=== PATIENT | male | born 1955 | race Caucasian/White ===

== ENCOUNTER 2017-08-04 10:34 | Inpatient (IN) | payer OTHER ==
[2017-08-04] MEDS ORDERED: ASPIRIN 81 MG PO STA (10:57)
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
[2017-08-04] MEDS ORDERED: LORazepam 2 MG/ML INJ IV STA (11:11)
[2017-08-04] MEDS ORDERED: NITROGLYCERIN OINT 1 INCH/GM PACKET TOPICAL STA (11:25)
[2017-08-04 11:28] LABS: Basophils # (A) 0.1 k/uL (0-0.2); Basophils % (A) 1 %; Eosinophils # (A) 0.2 k/uL (0-0.7); Eosinophils % (A) 4 %; HCT 40.7 % (39.0-53.0); HGB 12.9 gm/dL (13.0-17.5); Lymphocytes # (A) 1.9 k/uL (1.0-4.8); Lymphocytes % (A) 31 %; MCH 31.2 pg (25.0-35.0); MCHC 31.7 g/dL (31.0-37.0); MCV 98.2 fL (80.0-100.0); Mean Platelet Volume 8.2; Monocytes # (A) 0.6 k/uL (0-1.0); Monocytes % (A) 9 %; Neutrophils # (A) 3.4 k/uL (1.3-7.7); Neutrophils % (A) 54 %; Platelet Count 136 k/uL (150-450); RBC 4.14 m/uL (4.30-5.90); WBC 6.3 k/uL (3.8-10.6)
[2017-08-04 11:37] LABS: Partial Thromboplastin Time 27.4 sec (22.0-30.0); Prothrombin Time 10.1 sec (9.0-12.0)
[2017-08-04 11:41] LABS: ALT 18 U/L (21-72); AST 18 U/L (17-59); Albumin 3.8 g/dL (3.5-5.0); Alkaline Phosphatase 63 U/L (38-126); Anion Gap 14 mmol/L; Blood Urea Nitrogen 14 mg/dL (9-20); Calcium 9.3 mg/dL (8.4-10.2); Carbon Dioxide 19 mmol/L (22-30); Chloride 113 mmol/L (98-107); Glucose 82 mg/dL (74-99); Potassium 3.7 mmol/L (3.5-5.1); Sodium 146 mmol/L (137-145); Total Bilirubin 0.4 mg/dL (0.2-1.3); Total Protein 6.4 g/dL (6.3-8.2)
[2017-08-04 11:45] LABS: Creatine Kinase 136 U/L (55-170)
[2017-08-04 11:56] LABS: Creatine Kinase MB 2.2 ng/mL (0.0-2.4); Troponin I <0.012 ng/mL (0.000-0.034)
--- NOTE | 2017-08-04 12:01 | XR ---
EXAMINATION TYPE: XR shoulder complete RT DATE OF EXAM: 08/04/2017 CLINICAL HISTORY: Lifting injury with pain TECHNIQUE: Three views of the right shoulder are obtained. COMPARISON: None. FINDINGS: There is no acute fracture/dislocation evident in the right shoulder. The acromioclavicul ar and glenohumeral joint spaces appear within normal limits. The visualized ribs are intact and unr emarkable. IMPRESSION: There is no acute fracture or dislocation in the right shoulder.
--- NOTE | 2017-08-04 12:15 | XR ---
EXAMINATION TYPE: XR chest 2V DATE OF EXAM: 08/04/2017 COMPARISON: NONE HISTORY: Chest pain. TECHNIQUE: Frontal and lateral views of the chest are obtained. FINDINGS: There is chronic emphysematous change without suspicious air space opacity, pleural effusi on, or pneumothorax seen. The cardiac silhouette size is upper limits of normal. The osseous struc tures are demineralized. Underlying scoliotic curvature is present. IMPRESSION: Chronic changes without acute pulmonary process.
[2017-08-04] MEDS ORDERED: MAGNESIUM SULFATE-D5W PMX 1 GM in DEXTROSE/WATER 1 100ML.BAG IVPB ONE (12:19)
--- NOTE | 2017-08-04 13:11 | CT ---
EXAMINATION TYPE: CT brain wo con DATE OF EXAM: 08/04/2017 COMPARISON: NONE HISTORY: Seizure CT DLP: 1147 mGycm Automated exposure control for dose reduction was used. FINDINGS: Ventricular system is midline without evidence of displacement. There is no acute hemorrhage mass effect or midline shift. Ventricular system is compatible with the patient's age. IMPRESSION: NO ACUTE HEMORRHAGE OR MASS EFFECT. IF THERE IS CONCERN FOR ACUTE ISCHEMIA CORRELATE WITH MRI.
[2017-08-04] MEDS ORDERED: levETIRAcetam IV 1,000 MG in SALINE 1 100ML.BAG IVPB STA (13:41)
[2017-08-04] MEDS ORDERED: NITROGLYCERIN SL TABS 0.4 MG TAB SUBLINGUAL PRN (13:56)
[2017-08-04 15:42] VITALS: BMI 22.3
[2017-08-04] MEDS: BACLOFEN 10 MG TAB PO SCH ×2 (16:40→19:51)
[2017-08-04] MEDS: NITROGLYCERIN OINT 1 INCH/GM PACKET TOPICAL SCH ×2 (17:28→22:57)
[2017-08-04] MEDS: GABAPENTIN 300 MG CAP PO SCH ×3 (17:29→19:51)
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
[2017-08-04] MEDS ORDERED: LORazepam 2 MG/ML INJ IV PRN (18:32)
[2017-08-04 18:35] LABS: Creatine Kinase 120 U/L (55-170)
[2017-08-04 18:50] LABS: Creatine Kinase MB 1.7 ng/mL (0.0-2.4); Troponin I <0.012 ng/mL (0.000-0.034)
--- NOTE | 2017-08-04 19:11 | ECHOF ---
Referral Reason: MEASUREMENTS -------- HEIGHT: 180.3 cm WEIGHT: 72.6 kg BP: 149/84 RVIDd: 2.6 cm (< 3.3) IVSd: 1.2 cm (0.6 - 1.1) LVIDd: 5.0 cm (3.9 - 5.3) LVPWd: 1.2 cm (0.6 - 1.1) IVSs: 1.6 cm LVIDs: 3.1 cm LVPWs: 1.6 cm LA Diam: 3.6 cm (2.7 - 3.8) LAESV Index (A-L): 25.87 ml/m Ao Diam: 3.8 cm (2.0 - 3.7) AV Cusp: 2.3 cm (1.5 - 2.6) MV EXCURSION: 22.777 mm (> 18.000) MV EF SLOPE: 97 mm/s (70 - 150) EPSS: 0.2 cm MV E Noah: 0.60 m/s MV DecT: 311 ms MV A Noah: 0.88 m/s MV E/A Ratio: 0.68 RAP: 5.00 mmHg RVSP: 20.60 mmHg FINDINGS -------- Sinus rhythm. This was a technically adequate study. The left ventricular size is normal. There is borderline concentric left ventricular hypertrophy. Overall left ventricular systolic function is normal with, an EF between 55 - 60 %. The right ventricle is normal in size. Normal LA size by volume 22+/-6 ml/m2. The right atrium is normal in size. Aortic valve is trileaflet and is mildly thickened. The mitral valve leaflets are mildly thickened. Mild tricuspid regurgitation present. Right ventricular systolic pressure is normal at < 35 mmHg. The pulmonic valve was not well visualized. The aortic root is dilated measuring 3.8cm. IVC Not well visulized. There is no pericardial effusion. CONCLUSIONS -------- 1. Sinus rhythm. 2. This was a technically adequate study. 3. The left ventricular size is normal. 4. There is borderline concentric left ventricular hypertrophy. 5. Overall left ventricular systolic function is normal with, an EF between 55 - 60 %. 6. The right ventricle is normal in size. 7. Normal LA size by volume 22+/-6 ml/m2. 8. The right atrium is normal in size. 9. Aortic valve is trileaflet and is mildly thickened. 10. The mitral valve leaflets are mildly thickened. 11. Mild tricuspid regurgitation present. 12. Right ventricular systolic pressure is normal at < 35 mmHg. 13. The pulmonic valve was not well visualized. 14. The aortic root is dilated measuring 3.8cm. 15. IVC Not well visulized. 16. There is no pericardial effusion. PROVIDER RELATIONS REP: Meli Emanuel RDCS
[2017-08-04] MEDS: levETIRAcetam 500 MG TAB PO SCH (19:51)
[2017-08-04] MEDS: PRAVASTATIN SODIUM 20 MG TAB PO SCH (19:51)
[2017-08-04] MEDS: MONTELUKAST 10 MG TAB PO SCH (19:51)
[2017-08-04] MEDS: BRIVARACETAM 50 MG PO SCH (19:54)
[2017-08-04] MEDS: HYDROcodone/APAP 7.5-325MG 1 EACH TAB PO SCH (19:57)
[2017-08-04] MEDS ORDERED: ATENOLOL 25 MG TAB PO SCH (21:00)
[2017-08-05 01:18] LABS: Creatine Kinase 105 U/L (55-170)
[2017-08-05 01:33] LABS: Creatine Kinase MB 1.5 ng/mL (0.0-2.4); Troponin I <0.012 ng/mL (0.000-0.034)
[2017-08-05 06:10] LABS: Basophils # (A) 0.1 k/uL (0-0.2); Basophils % (A) 1 %; Eosinophils # (A) 0.2 k/uL (0-0.7); Eosinophils % (A) 3 %; HCT 41.7 % (39.0-53.0); HGB 13.7 gm/dL (13.0-17.5); Lymphocytes # (A) 1.3 k/uL (1.0-4.8); Lymphocytes % (A) 19 %; MCH 32.3 pg (25.0-35.0); MCHC 32.9 g/dL (31.0-37.0); MCV 98.2 fL (80.0-100.0); Mean Platelet Volume 8.4; Monocytes # (A) 0.6 k/uL (0-1.0); Monocytes % (A) 9 %; Neutrophils # (A) 4.6 k/uL (1.3-7.7); Neutrophils % (A) 67 %; Platelet Count 141 k/uL (150-450); RBC 4.25 m/uL (4.30-5.90); RDW 13.7 % (11.5-15.5); WBC 6.8 k/uL (3.8-10.6)
[2017-08-05] MEDS: LEVOTHYROXINE 75 MCG TAB PO SCH (06:26)
[2017-08-05] MEDS: NITROGLYCERIN OINT 1 INCH/GM PACKET TOPICAL SCH (06:26)
[2017-08-05] MEDS: PANTOPRAZOLE 40 MG TABLET PO SCH (06:26)
[2017-08-05 06:29] LABS: ALT 16 U/L (21-72); AST 15 U/L (17-59); Albumin 3.4 g/dL (3.5-5.0); Alkaline Phosphatase 55 U/L (38-126); Anion Gap 11 mmol/L; Blood Urea Nitrogen 13 mg/dL (9-20); Calcium 9.1 mg/dL (8.4-10.2); Carbon Dioxide 23 mmol/L (22-30); Chloride 111 mmol/L (98-107); Cholesterol 171 mg/dL (<200); Glucose 92 mg/dL (74-99); HDL Cholesterol 32 mg/dL (40-60); LDL Cholesterol,Calculated 124 mg/dL (0-99); Potassium 3.8 mmol/L (3.5-5.1); Sodium 145 mmol/L (137-145); Total Bilirubin 0.3 mg/dL (0.2-1.3); Total Protein 5.8 g/dL (6.3-8.2); Triglycerides 77 mg/dL (<150)
[2017-08-05] MEDS ORDERED: IPRATROPIUM 0.5 MG/2.5 ML NEBU INHALATION SCH (08:00)
[2017-08-05] MEDS: BRIVARACETAM 50 MG PO SCH ×2 (08:03→20:19)
[2017-08-05] MEDS: BACLOFEN 10 MG TAB PO SCH ×3 (08:04→20:24)
[2017-08-05] MEDS: FLUTICASONE 50MCG/SPRAY NASAL 16GM EA NOSTRIL SCH (08:04)
[2017-08-05] MEDS: ASPIRIN 325 MG TAB PO SCH (08:04)
[2017-08-05] MEDS: GABAPENTIN 300 MG CAP PO SCH ×4 (08:04→20:23)
[2017-08-05] MEDS: TOPIRAMATE 400 MG PO SCH (08:04)
[2017-08-05] MEDS: levETIRAcetam 500 MG TAB PO SCH ×2 (08:04→20:23)
[2017-08-05] MEDS: NICOTINE 21MG/24HR PATCH TRANSDERM SCH (08:05)
[2017-08-05] MEDS: LISINOPRIL 20 MG TAB PO SCH (08:05)
[2017-08-05] MEDS: HYDROcodone/APAP 7.5-325MG 1 EACH TAB PO SCH ×2 (08:11→20:23)
--- NOTE | 2017-08-05 09:48 | CONS ---
CONSULTATION CHIEF COMPLAINT: Cardiac arrhythmia. Adolfo is 61-year-old gentleman with history of seizure disorder for a long time, comes into hospital having had seizures and subsequently had seizure in the ER. These are generalized tonic-clonic seizures. During that time, his rhythm strip showed wide- complex tachycardia for which Cardiology has been consulted. It appears as if it is a polymorphic VT, but on close in meticulous evaluation, the patient has underlying sinus rhythm with sinus bradycardia and this seems to be an artifact. Patient had an echocardiogram that showed normal LV function. Since admission, patient did not have any further cardiac arrhythmia and the EKG does not reveal ischemic changes. He has had 3 sets of troponins that are all within normal limits. Potassium is normal at 3.8, creatinine is 0.9. Magnesium was somewhat low that has been supplemented and looks good. PAST MEDICAL HISTORY: Significant for seizure disorder, dyslipidemia, COPD and hypertension. MEDICATIONS: Include Trokendi, omeprazole, Briviact, atenolol, Keppra, Synthroid, Requip, Vidor, Neurontin, baclofen, Singulair, Pravachol, lisinopril, Flonase, and home O2. ALLERGIC: To IODINE and SHELLFISH. FAMILY HISTORY: Negative for premature coronary artery disease. SOCIAL HISTORY: Negative for current smoking, EtOH abuse or drug abuse. REVIEW OF SYSTEMS: HEENT is unremarkable. CARDIAC: As described above. RESPIRATORY: Negative. GI: Negative. GENITOURINARY ACTIVE;anterior negative. Skin and muscle: Negative endocrine: Negative. CONSTITUTIONAL: Negative. ONCOLOGICAL: Negative. TITLE INSPECTOR: Significant for seizures. PHYSICAL EXAM: Comfortable at rest. Vital signs are stable. There is no jugular venous distention. Carotid upstroke is normal. There is no bruit. Chest exam reveals good air entry bilaterally. Heart exam reveals first and second heart sounds. No gallop. No murmur. No rub. Abdomen is soft, nontender. Exam of extremities did not reveal any edema. Peripheral pulses are felt. LABS: Show that the potassium is 3.8, creatinine is 0.9, 3 sets of troponins are negative. Hemoglobin is normal at 13.7. EKG does not reveal ischemic changes. Rhythm strips show wide-complex tachycardia that is related to artifact. ASSESSMENT: 1. Seizure disorder. 2. Polymorphic ventricular tachycardia. 3. Smoking. PLAN: Patient has normal LV function on the echo. Myocardial infarction is ruled out. Rhythm strips do not show any evidence of significant cardiac arrhythmia. This strips where he was thought to have had polymorphic VT, appears to be an artifact. No further cardiac workup is necessary. He is stable to be discharged home. I will consider an outpatient stress test on him when he is stable. I advised the patient to quit smoking. CECILIA / ISIDORO: [id number] /
[2017-08-05] MEDS: ENOXAPARIN 40 MG/0.4 ML SYRINGE SQ SCH (09:51)
[2017-08-05] MEDS: VIT A,C & E-LUTEIN-MINERALS 1 EACH TAB PO SCH (12:14)
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
--- NOTE | 2017-08-05 19:37 | EEG ---
ELECTROENCEPHALOGRAM REPORT DATE OF EE08/05/2017 ELECTROENCEPHALOGRAPHIC EXAMINATION REPORT: INDICATION FOR EXAMINATION: This patient is a 61-year-old male being evaluated for breakthrough seizures. The patient has long-standing history of underlying epilepsy and seizure disorder. AGE: 61. EEG FINDINGS: A routine 21-channel awake digital EEG recording was accomplished utilizing the 10-20 international system with bipolar and referential montages. The background activity in the most alert resting state consists of a low to medium amplitude, fairly well- developed well sustained 7-8 Hz activity over the posterior head regions. This posterior rhythm attenuates to eye opening. There is a small amount of low amplitude 18-20 Hz beta activity seen maximally over the anterior head regions. Muscle and movement artifact was observed on a few occasions during the tracing. Hyperventilation was not performed. Photic stimulation at flash frequencies of 2-30 Hz produced a good symmetrical occipital driving response. The main feature of this tracing is the occurrence on several occasions of bitemporal sharp waves. IMPRESSION: This EEG is abnormal due to the presence of bitemporal sharp waves suggesting underlying seizure disorder of deep level origin. If clinically indicated, a follow-up EEG is recommended. Clinical correlation is recommended. MMODL / IJN: [id number] /
[2017-08-05] MEDS: MONTELUKAST 10 MG TAB PO SCH (20:23)
[2017-08-05] MEDS: PRAVASTATIN SODIUM 20 MG TAB PO SCH (20:24)
[2017-08-06] MEDS: LEVOTHYROXINE 75 MCG TAB PO SCH (06:06)
[2017-08-06] MEDS: PANTOPRAZOLE 40 MG TABLET PO SCH (06:06)
[2017-08-06 06:38] LABS: Basophils # (A) 0.1 k/uL (0-0.2); Basophils % (A) 1 %; Eosinophils # (A) 0.3 k/uL (0-0.7); Eosinophils % (A) 4 %; HCT 42.5 % (39.0-53.0); HGB 14.1 gm/dL (13.0-17.5); Lymphocytes # (A) 1.5 k/uL (1.0-4.8); Lymphocytes % (A) 19 %; MCH 32.5 pg (25.0-35.0); MCHC 33.2 g/dL (31.0-37.0); Mean Platelet Volume 7.9; Monocytes # (A) 0.8 k/uL (0-1.0); Monocytes % (A) 9 %; Neutrophils # (A) 5.3 k/uL (1.3-7.7); Neutrophils % (A) 65 %; Platelet Count 148 k/uL (150-450); RBC 4.34 m/uL (4.30-5.90); RDW 13.8 % (11.5-15.5)
[2017-08-06 06:50] LABS: ALT 16 U/L (21-72); AST 14 U/L (17-59); Albumin 3.5 g/dL (3.5-5.0); Alkaline Phosphatase 55 U/L (38-126); Anion Gap 12 mmol/L; Blood Urea Nitrogen 18 mg/dL (9-20); Calcium 9.2 mg/dL (8.4-10.2); Carbon Dioxide 23 mmol/L (22-30); Chloride 109 mmol/L (98-107); Glucose 107 mg/dL (74-99); Potassium 4.2 mmol/L (3.5-5.1); Sodium 144 mmol/L (137-145); Total Bilirubin 0.2 mg/dL (0.2-1.3)
[2017-08-06 08:05] VITALS: RESP 16
[2017-08-06] MEDS: BRIVARACETAM 50 MG PO SCH (08:12)
[2017-08-06] MEDS: BACLOFEN 10 MG TAB PO SCH (08:13)
[2017-08-06] MEDS: TOPIRAMATE 400 MG PO SCH (08:13)
[2017-08-06] MEDS: ASPIRIN 325 MG TAB PO SCH (08:13)
[2017-08-06] MEDS: GABAPENTIN 300 MG CAP PO SCH ×2 (08:13→12:14)
[2017-08-06] MEDS: levETIRAcetam 500 MG TAB PO SCH (08:13)
[2017-08-06] MEDS: FLUTICASONE 50MCG/SPRAY NASAL 16GM EA NOSTRIL SCH (08:13)
[2017-08-06] MEDS: ENOXAPARIN 40 MG/0.4 ML SYRINGE SQ SCH (08:13)
[2017-08-06] MEDS: NICOTINE 21MG/24HR PATCH TRANSDERM SCH (08:14)
[2017-08-06] MEDS: LISINOPRIL 20 MG TAB PO SCH (08:14)
[2017-08-06] MEDS: HYDROcodone/APAP 7.5-325MG 1 EACH TAB PO SCH (08:18)
[2017-08-06 11:17] VITALS: BP 119/64; PULSE 50; TEMP 96.8
--- NOTE | 2017-08-06 11:43 | P.PN ---
Subjective Progress Note Date: 08/06/17 Principal diagnosis: Seizures, wide-complex tachycardia This is a 61-year-old gentleman with history of seizure disorder who presented to the hospital having had seizures, during that time, his rhythm strip revealed a wide complex tachycardia for which a cardiology consultation was requested. The rhythm was reviewed by Dr. Morales and was felt to be artifact. He had an echocardiogram with Doppler performed which revealed a normal left ventricular systolic function, no further arrhythmias of any sort have been noted on the monitor, and troponins have been negative. She did have a low magnesium which was replaced. He has history of COPD, hypertension, hyperlipidemia. Blood pressure this morning 120/60 with a heart rate in the 50s , 97% on 2 L of oxygen. White blood cell count 8.0, hemoglobin 14, sodium 144, potassium 4.2, BUN 18, creatinine 0.8. Objective - Vital Signs Vital signs: Vital Signs Temp 96.8 F L 08/06/17 11:16 Pulse 50 L 08/06/17 11:22 Resp 16 08/06/17 11:16 BP 119/64 08/06/17 11:16 Pulse Ox 97 08/06/17 11:16 Intake & Output 08/05/17 08/06/17 08/06/17 18:59 06:59 18:59 Intake Total 462 360 Output Total 1000 400 Balance -538 -400 360 Weight 67.2 kg Intake: Oral 462 360 Output: Urine 1000 400 Other: Voiding Method Urinal # Voids 1 1 - Exam PHYSICAL EXAMINATION: HEENT: Head is atraumatic, normocephalic. Pupils equal, round. Neck is supple. There is no elevated jugular venous pressure. HEART EXAMINATION: Heart S1, S2 normal. No murmur or gallop heard. CHEST EXAMINATION: Lungs are clear to auscultation and precussion. No chest wall tenderness is noted on palpation or with deep breathing. ABDOMEN: Soft, nontender. Bowel sounds are heard. No organomegaly noted. EXTREMITIES: 2+ peripheral pulses with no evidence of peripheral edema and no calf tenderness noted. NEUROLOGIC patient is awake, alert and oriented -3. . - Labs CBC & Chem 7: 08/06/17 06:18 08/06/17 06:18 Labs: Abnormal Lab Results - Last 24 Hours (Table) 08/06/17 08/06/17 Range/Units 06:18 06:18 Plt Count 148 L (150-450) k/uL Chloride 109 H (98-107) mmol/L Glucose 107 H (74-99) mg/dL AST 14 L (17-59) U/L ALT 16 L (21-72) U/L Total Protein 6.0 L (6.3-8.2) g/dL Assessment and Plan Plan: Assessment and plan #1 recurrent seizures in a patient with history of seizures #2 COPD #3 wide complex tachycardia, reviewed by Dr. Herrera and felt to be artifact. Echocardiogram with Doppler study was performed which revealed normal left ventricular systolic function. Troponins were normal. No arrhythmias noted on the monitor. #4 nicotine dependence #5 hypertension #6 GERD Plan From cardiology's perspective, patient is stable to be discharged home. Follow- up appointment will be made in the office with Dr. Herrera, outpatient stress testing when the patient is stable. DNP note has been reviewed, I agree with a documented findings and plan of care. Patient was seen and examined.
[2017-08-06] MEDS: VIT A,C & E-LUTEIN-MINERALS 1 EACH TAB PO SCH (12:14)
--- NOTE | 2017-08-06 16:49 | P.DS ---
Providers Date of admission: 08/04/17 13:56 Expected date of discharge: 08/06/17 Attending physician: Marcie Bradley MD Consults: 08/04/17 13:56 Consult Physician Urgent Consulting Provider: Yolis Mcgowan Consult Reason/Comments: cp, torsades? Do you want consulting provider notified?: Yes Consult Physician Urgent Consulting Provider: Daniel Clarke Consult Reason/Comments: recurrent seizures Do you want consulting provider notified?: Already Contacted Primary care physician: Kolby Mallory [facility] Course: 61 years old male with history of COPD, hypertension, seizure disorder comes in with right shoulder pain with associated chest pain on the right forearm few months that her voice has worsened in the past 3 weeks. 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 Currently patient has nobody at bedside and patient is a poor historian. Patient also had a brief seizure episode in the ER which apparently was localized to the left side. Patient received 1 g of Ativan and loading of Keppra after drawing Keppra levels and neurology involvement. Patient does have a history of seizure intake Prior twice a daily. He was noted to be in torsades on telemetry. Vital in the ER patient had a temp of 98.1 blood pressure 134/59 with pulse rate of 60. EKG was done which suggested sinus bradycardia with heart rate of [address] or T-wave changes. QRS interval was 84 with QT of 420. 08/06: Patient has been seen and followed by cardiology. Myocardial infarction has been ruled out. No evidence of cardiac arrhythmia. Strips thought to be V. tach are artifact. No further work up was determined necessary. Patient will follow up for an outpatient stress test once he is stable. Patient has been cleared by cardiology for discharge. Echocardiogram reveals EF of 55-60% with borderline concentric left ventricular hypertrophy, mild tricuspid regurgitation. Patient has been seen and followed by Dr. Clarke with recommendations to continue his current anti-convulsant medications. EEG is abnormal due to presence of by temporal sharp waves suggesting underlying seizure disorder of deep level origin. Keppra level is normal at 31. Patient has had no further seizure activity and will be discharged home today in stable condition. Discharge diagnoses: #1 recurrent seizures with history of seizure #2 COPD #3 hypertension #4 tobacco abuse #5 history of GERD #6 history of neuropathy #7 torsades the pointes #8 sinus bradycardia #9 hypothyroidism #10 hyperlipidemia Discharge plan: Home Impression and plan of care have been directed as dictated by the signing physician. Virginia Link nurse practitioner acting as scribe for signing physician. Patient Condition at Discharge: Good Plan - Discharge Summary Discharge Rx Participant: Yes New Discharge Prescriptions: Continue Topiramate [Trokendi Xr] 400 mg PO DAILY Brivaracetam [Briviact] 50 mg PO BID Atenolol 25 mg PO BID Levothyroxine Sodium [Synthroid] 75 mcg PO DAILY rOPINIRole HCL [Requip] 1 mg PO HS Hydrocodone/Acetaminophen [[place] 7.5-325] 1 tab PO BID Gabapentin [Neurontin] 300 mg PO QID Baclofen 10 mg PO TID Vits A,C,E/Lutein/Minerals [Ocuvite with Lutein Tablet] 1 tab PO DAILY Montelukast [Singulair] 10 mg PO HS Umeclidinium [place] [Incruse Ellipta] 1 puff INHALATION RT-DAILY Pravastatin Sodium [Pravachol] 20 mg PO HS Lisinopril 40 mg PO DAILY Fluticasone Propionate [Flonase Allergy Relief] 2 spray EA NOSTRIL DAILY Omeprazole 20 mg PO DAILY levETIRAcetam [Keppra] 1,000 mg PO Q12HR #60 tablet Discharge Medication List Atenolol 25 mg PO BID 08/04/17 [History] Baclofen 10 mg PO TID 08/04/17 [History] Brivaracetam [Briviact] 50 mg PO BID 08/04/17 [History] Fluticasone Propionate [Flonase Allergy Relief] 2 spray EA NOSTRIL DAILY [History] Gabapentin [Neurontin] 300 mg PO QID 08/04/17 [History] Hydrocodone/Acetaminophen [[place] 7.5-325] 1 tab PO BID 08/04/17 [History] Levothyroxine Sodium [Synthroid] 75 mcg PO DAILY 08/04/17 [History] Lisinopril 40 mg PO DAILY 08/04/17 [History] Montelukast [Singulair] 10 mg PO HS 08/04/17 [History] Omeprazole 20 mg PO DAILY 08/04/17 [History] Pravastatin Sodium [Pravachol] 20 mg PO HS 08/04/17 [History] Topiramate [Trokendi Xr] 400 mg PO DAILY 08/04/17 [History] Umeclidinium [place] [Incruse Ellipta] 1 puff INHALATION RT-DAILY 08/04/17 [ History] Vits A,C,E/Lutein/Minerals [Ocuvite with Lutein Tablet] 1 tab PO DAILY 08/04/17 [History] rOPINIRole HCL [Requip] 1 mg PO HS 08/04/17 [History] levETIRAcetam [Keppra] 1,000 mg PO Q12HR #60 tablet 08/06/17 [Rx] Follow up Appointment(s)/Referral(s): Benito Shay MD [STAFF PHYSICIAN] - 08/18/17 4:00 pm Elton Baig MD [STAFF PHYSICIAN] - 1 Week (Office to call patient with follow up appointment.) Kolby Padgett MD [Primary Care Provider] - 08/18/17 8:45 am (Dr. Padgett very booked, if early appointment doesn't work please call office to change. ) Patient Instructions/Handouts: Recurrent Seizures in Adults (DC) Activity/Diet/Wound Care/Special Instructions: Future outpatient stress test when stable. No driving for 6 months until cleared by neurologist per [place] law. Discharge Disposition: HOME SELF-CARE
== END 2017-08-06 16:39 | disposition home or self-care (01) | DRG 101 ==
LOC: EC 10:34 → 6SEL 13:56
PROVIDERS: ADMIT Internal Medicine; ATTEND Internal Medicine
DX: G40.409 Other generalized epilepsy and epileptic syndromes, not intractable, without status epilepticus (principal); G62.9 Polyneuropathy, unspecified; I11.9 Hypertensive heart disease without heart failure; I07.1 Rheumatic tricuspid insufficiency; E03.9 Hypothyroidism, unspecified; E78.5 Hyperlipidemia, unspecified; F17.200 Nicotine dependence, unspecified, uncomplicated; J44.9 Chronic obstructive pulmonary disease, unspecified; K21.9 Gastro-esophageal reflux disease without esophagitis; M25.511 Pain in right shoulder; R07.9 Chest pain, unspecified; R00.1 Bradycardia, unspecified; R21 Rash and other nonspecific skin eruption; Z79.899 Other long term (current) drug therapy; Z91.041 Radiographic dye allergy status; Z91.013 Allergy to seafood; Z71.6 Tobacco abuse counseling
CPT/HCPCS: 36415; 70450; 71046; 80053; 80061; 80177; 82550; 82553; 83735; 84146; 84484; 85025; 85610; 85730; 93005; 93306; 95819; 96365; 96367; 96375; 99285

== ENCOUNTER 2017-09-08 07:58 | Day surgery (SDC) | payer OTHER ==
[2017-09-03 16:16] VITALS: BMI 25.8
[~2017-09-08 07:58] MED LIST: ALPRAZolam 0.5 MG TAB PO PRN; ASPIRIN 325 MG TAB PO ONE; NITROGLYCERIN SL TABS 0.4 MG TAB SUBLINGUAL PRN; SODIUM CHLORIDE 0.9% 1,000 ML in EMPTY BAG 1 BAG IV ONE
[2017-09-08 08:25] VITALS: TEMP 97.8
[2017-09-08 08:48] LABS: Basophils % (A) 0 %; Eosinophils % (A) 0 %; HCT 41.3 % (39.0-53.0); HGB 13.3 gm/dL (13.0-17.5); Lymphocytes # (A) 1.2 k/uL (1.0-4.8); Lymphocytes % (A) 15 %; MCH 31.8 pg (25.0-35.0); MCHC 32.1 g/dL (31.0-37.0); Monocytes # (A) 0.8 k/uL (0-1.0); Monocytes % (A) 9 %; Neutrophils # (A) 6.1 k/uL (1.3-7.7); Neutrophils % (A) 73 %; Platelet Count 174 k/uL (150-450); RBC 4.17 m/uL (4.30-5.90); WBC 8.4 k/uL (3.8-10.6)
[2017-09-08 08:55] LABS: Anion Gap 13 mmol/L; Blood Urea Nitrogen 32 mg/dL (9-20); Calcium 9.6 mg/dL (8.4-10.2); Carbon Dioxide 23 mmol/L (22-30); Chloride 111 mmol/L (98-107); Glucose 121 mg/dL (74-99); Potassium 4.3 mmol/L (3.5-5.1); Sodium 147 mmol/L (137-145)
[2017-09-08] MEDS ORDERED: HEPARIN SODIUM 1,000 UN/ML (10ML VL) ONE (09:04)
[2017-09-08] MEDS ORDERED: MIDAZOLAM 2 MG/2 ML VIAL ONE (09:04)
[2017-09-08] MEDS ORDERED: VERAPAMIL 2.5 MG/ML 2 ML AMP ONE (09:04)
[2017-09-08] MEDS ORDERED: fentaNYL (PF) 50 MCG/ML 2 ML AMP ONE (09:04)
[2017-09-08] MEDS ORDERED: LIDOCAINE 2% INJ 20 MG/ML (20 ML MDV) ONE (09:04)
[2017-09-08] MEDS ORDERED: MIDAZOLAM 2 MG/2 ML VIAL IV ONE (09:32)
[2017-09-08] MEDS ORDERED: LIDOCAINE 2% INJ 20 MG/ML SQ ONE (09:33)
[2017-09-08] MEDS ORDERED: IOPAMIDOL-370 125ML BTL INJ ONE (09:42)
[2017-09-08] MEDS ORDERED: RX INFO: IV CONTRAST WAS GIVEN 1 EACH MISC MISCELLANE PRN (09:53)
[2017-09-08] MEDS ORDERED: SODIUM CHLORIDE 0.9% 1,000 ML IV SCH (10:00)
--- NOTE | 2017-09-08 10:34 | CC ---
CARDIAC CATHETERIZATION REPORT DATE OF SERVICE: September 08, 2017. PERFORMING PHYSICIAN: Benito Shay MD, triple drum operator. PROCEDURE PERFORMED: 1. Selective right and left coronary angiogram. 2. Left heart catheterization. INDICATIONS: This is a pleasant 61-year-old gentleman who continues to have intermittent episodes of chest discomfort. His discomfort was quite concerning for angina. He is known to have coronary artery disease, peripheral arterial disease, hypertension, and dyslipidemia, and he also continues to smoke. COMPLICATIONS: None. LEVEL OF SEDATION: Moderate with sedation length of 15 minutes. PROCEDURE DESCRIPTION: After obtaining an informed consent, the patient was brought to the cardiac propagator laborer. The right common femoral artery was cannulated using micropuncture technique, the micropuncture wire passed easily, then I placed a 5-[place] sheath in the right common femoral artery. After that I did selective right and left coronary angiogram using [id number] and [id number] catheters. Then I did left heart catheterization using 6-[place] pigtail catheter. The procedure was completed without any complication. SELECTIVE CORONARY ANGIOGRAM: 1. The RCA is a medium caliber vessel and it is a dominant vessel. The RCA in the midportion has intermediate disease only about 50%. 2. The left main is angiographically normal. It bifurcates into the circumflex, ramus intermedius, and left anterior descending artery. 3. The circumflex is a large caliber vessel. It is a nondominant vessel. It is angiographically normal. 4. The ramus intermedius has mild disease only in the proximal portion. 5. The LAD appears to be angiographically normal. HEMODYNAMICS: The left ventricular end-diastolic pressure was 8 mmHg and no gradient was identified across aortic valve. CONCLUSION: Intermediate disease involving the mid RCA appeared to be in the range of 50% to 60%. POST PROCEDURE MANAGEMENT: Medical treatment and follow up with the patient. MMODL / IJN: [id number] /
[2017-09-08 11:41] VITALS: BP 118/60; PULSE 60; RESP 18
[2017-09-08] MEDS ORDERED: GABAPENTIN 300 MG CAP PO STA (11:55)
[2017-09-08] MEDS ORDERED: BACLOFEN 10 MG TAB PO SCH (12:00)
== END 2017-09-08 17:30 | disposition home or self-care (01) ==
LOC: CATHCVL 07:58
PROVIDERS: ATTEND Internal Medicine Interventional Cardiology
DX: I25.110 Atherosclerotic heart disease of native coronary artery with unstable angina pectoris (principal); I10 Essential (primary) hypertension; F17.210 Nicotine dependence, cigarettes, uncomplicated; I73.9 Peripheral vascular disease, unspecified; E78.5 Hyperlipidemia, unspecified; E05.90 Thyrotoxicosis, unspecified without thyrotoxic crisis or storm; G40.909 Epilepsy, unspecified, not intractable, without status epilepticus; Z79.82 Long term (current) use of aspirin; Z79.890 Hormone replacement therapy; Z79.899 Other long term (current) drug therapy; Z91.013 Allergy to seafood; Z91.048 Other nonmedicinal substance allergy status
CPT/HCPCS: 93458; 80048; 85025; C1894; J2001; J2250; Q9967

== ENCOUNTER → 2017-09-11 | Outpatient (CLI) | payer OTHER ==
--- NOTE | 2017-09-11 15:19 | MR ---
EXAMINATION TYPE: MR cervical spine wo con DATE OF EXAM: 09/11/2017 COMPARISON: NONE HISTORY: Cervicalgia TECHNIQUE: Multiplanar, multisequence images of the cervical spine were acquired. FINDINGS: Vertebral body heights of the cervical spine are maintained. There is slight retrolisthesis of C3 on C4, C4 on C5 and C5 on C6 as well as C6 on C7. These are likely on a degenerative basis. Mu ltilevel disc desiccation is present. Spinal cord signal is homogeneous throughout and unremarkable. C2-C3: No evidence for degenerative disc disease. No disc bulge/herniation or protrusion. No Canal stenosis. Foramina are patent bilaterally. C3-C4: There is a small central disc herniation/focal protrusion, uncovertebral hypertrophy, and face t arthropathy that create moderate spinal canal stenosis and moderate bilateral neural foraminal narr owing C4-C5: There is a broad-based disc bulge, uncovertebral hypertrophy and facet arthropathy that create moderate left and mild right neural foraminal narrowing as well as moderate spinal canal stenosis. C5-C6: There is a slightly right paracentral disc herniation/protrusion superimposed upon a small bro ad-based disc bulge that in combination with uncovertebral hypertrophy and facet arthropathy creating mild bilateral neural foraminal narrowing and mild spinal canal stenosis. C6-C7: There is a slightly left paracentral small disc herniation/focal protrusion. Uncovertebral hyp ertrophy and facet arthropathy are also seen moderate narrowing the bilateral neural foramen. There i s also resultant mild spinal canal stenosis. C7-T1: No evidence for degenerative disc disease. No disc bulge/herniation or protrusion. No Canal stenosis. Foramina are patent bilaterally. IMPRESSION: 1. Small central disc herniation at C3-C4 that in combination with degenerative changes create modera te spinal canal stenosis and moderate bilateral neural foraminal narrowing. 2. Slightly right paracentral disc herniation at C5-C6 that in combination with degenerative changes create mild spinal canal stenosis and mild bilateral neural foraminal narrowing. 3. Slightly left paracentral small disc herniation at C6-C7 that in combination with degenerative bobby nges create moderate neural foraminal narrowing and mild spinal canal stenosis. 4. Degenerative disc disease at C4-C5 creating moderate spinal canal stenosis, moderate left neural f oraminal narrowing and mild right neural foraminal narrowing. 5. Multilevel grade 1 retrolisthesis of the cervical spine from C3 through C7, likely on a degenerati ve basis. No compression deformity.
--- NOTE | 2017-09-11 15:26 | MR ---
EXAMINATION TYPE: MR lumbar spine wo con DATE OF EXAM: 09/11/2017 COMPARISON: NONE HISTORY: Low back pain TECHNIQUE: Multiplanar, multisequence images of the lumbar spine were acquired. FINDINGS: Bone marrow signal is patchy but within normal limits on a subcentimeter T2/T1 hyperintense vertebral body hemangioma at L3. Lumbar spine vertebral bodies maintain normal vertebral body height s and alignment. Conus medullaris is unremarkable terminating at T12-L1 L1-L2: There is a broad-based disc bulge, facet arthropathy, and ligamentum flavum buckling that crea te mild bilateral neural foraminal narrowing without significant spinal canal stenosis. L2-L3: There is a broad-based disc bulge that in combination with facet arthropathy and ligamentum fl avum buckling create moderate bilateral neural foraminal narrowing and mild spinal canal stenosis L3-L4: There is a broad-based disc bulge defect that in combination with facet arthropathy and uncove rtebral hypertrophy create moderate bilateral neural foraminal narrowing. No significant spinal canal stenosis. L4-L5: There is a small right paracentral disc herniation with cranial extrusion of 4 mm. This is sup erimposed upon a broad-based disc bulge. There is facet arthropathy and ligamentum flavum buckling th at create severe bilateral neural foraminal narrowing with impingement on the L4 nerve roots. There i s also resultant mild spinal canal stenosis at this level L5-S1: There is a small right eccentric broad-based disc bulge with no significant neural foraminal n arrowing or spinal canal stenosis. IMPRESSION: 1. Small right paracentral disc herniation with 4 mm cranial disc extrusion. This in combination with degenerative changes create severe bilateral neural foraminal narrowing with impingement on the exit ing L4 nerve roots and mild spinal canal stenosis. 2. Multilevel degenerative disc disease creating mild spinal canal stenosis at L2-L3 and variable deg james of neural foraminal narrowing as described above.
== END | disposition home or self-care (01) ==
LOC: RADMRIMAIN 10:42
PROVIDERS: ATTEND Psychiatry & Neurology Neurology
DX: M48.02 Spinal stenosis, cervical region (principal); M48.061 Spinal stenosis, lumbar region without neurogenic claudication; M99.73 Connective tissue and disc stenosis of intervertebral foramina of lumbar region; M99.71 Connective tissue and disc stenosis of intervertebral foramina of cervical region; M50.21 Other cervical disc displacement, high cervical region; M51.26 Other intervertebral disc displacement, lumbar region; M51.36 Other intervertebral disc degeneration, lumbar region; M43.12 Spondylolisthesis, cervical region; M47.816 Spondylosis without myelopathy or radiculopathy, lumbar region; M47.812 Spondylosis without myelopathy or radiculopathy, cervical region; Z91.013 Allergy to seafood
CPT/HCPCS: 72141; 72148

== ENCOUNTER 2019-11-17 10:59 | Observation (INO) | payer MEDICARE, OTHER ==
[2019-11-17 14:21] LABS: ALT 17 U/L (4-49); AST 22 U/L (17-59); African American GFR (CKD) >90 (>60 ml/min/1.73 sqM); Albumin 3.8 g/dL (3.5-5.0); Alkaline Phosphatase 74 U/L (38-126); Anion Gap 6 mmol/L; Blood Urea Nitrogen 16 mg/dL (9-20); Calcium 8.8 mg/dL (8.4-10.2); Carbon Dioxide 22 mmol/L (22-30); Chloride 111 mmol/L (98-107); Glucose 88 mg/dL (74-99); Non-African American GFR(CKD) >90 (>60 ml/min/1.73 sqM); Potassium 4.4 mmol/L (3.5-5.1); Sodium 139 mmol/L (137-145); Total Bilirubin 0.2 mg/dL (0.2-1.3); Total Protein 6.1 g/dL (6.3-8.2)
[2019-11-17 14:22] LABS: Creatine Kinase 62 U/L (55-170); Creatine Kinase MB 1.2 ng/mL (0.0-2.4); Troponin I <0.012 ng/mL (0.000-0.034)
[2019-11-17 14:29] LABS: INR 0.9 (<1.2); Partial Thromboplastin Time 25.7 sec (22.0-30.0); Prothrombin Time 9.8 sec (9.0-12.0)
--- NOTE | 2019-11-17 14:33 | XR ---
EXAMINATION TYPE: XR chest 2V DATE OF EXAM: 11/17/2019 COMPARISON: 07/30/2019 INDICATION: Chest TECHNIQUE: Frontal and lateral views of the chest are obtained. FINDINGS: The heart size is normal. The pulmonary vasculature is normal. The lungs are clear. There is hyperinflation flattening the compatible IMPRESSION: 1. No acute pulmonary process. 2. COPD
[2019-11-17 14:40] LABS: Basophils % (A) 1 %; Eosinophils # (A) 0.3 k/uL (0-0.7); Eosinophils % (A) 4 %; HCT 42.6 % (39.0-53.0); HGB 13.7 gm/dL (13.0-17.5); Hypochromasia Slight; Lymphocytes # (A) 1.9 k/uL (1.0-4.8); Lymphocytes % (A) 26 %; MCH 32.6 pg (25.0-35.0); MCHC 32.1 g/dL (31.0-37.0); MCV 101.7 fL (80.0-100.0); Macrocytosis Slight; Mean Platelet Volume 9.2; Monocytes # (A) 0.5 k/uL (0-1.0); Monocytes % (A) 8 %; Neutrophils # (A) 4.3 k/uL (1.3-7.7); Neutrophils % (A) 60 %; Platelet Count 143 k/uL (150-450); RBC 4.19 m/uL (4.30-5.90); RDW 14.3 % (11.5-15.5); WBC 7.2 k/uL (3.8-10.6)
[2019-11-17] MEDS ORDERED: BUTALB/APAP/CAFF 50-325-40MG TAB PO PRN ×2 (18:09→19:27)
[2019-11-17] MEDS ORDERED: ALBUTEROL HFA INHALER INHALATION PRN (18:09)
[2019-11-17] MEDS ORDERED: ALBUTEROL NEBULIZED 2.5 MG/3 ML INHALATION PRN (19:25)
[2019-11-17] MEDS ORDERED: BUDESONIDE INHALATION SCH (20:00)
[2019-11-17] MEDS: FLUTICASONE 110 MCG INHALER INHALATION SCH (20:30)
[2019-11-17] MEDS: IPRATROPIUM 0.5 MG/2.5 ML NEBU INHALATION SCH (20:30)
[2019-11-17] MEDS ORDERED: HYDROcodone/APAP 7.5-325MG 1 EACH TAB PO SCH (21:00)
[2019-11-17] MEDS ORDERED: levETIRAcetam 500 MG TAB PO SCH (21:00)
[2019-11-17] MEDS ORDERED: MONTELUKAST 10 MG TAB PO SCH ×2 (21:00)
[2019-11-17] MEDS ORDERED: GABAPENTIN 300 MG CAP PO SCH ×2 (21:00)
[2019-11-17] MEDS: HYDROcodone/APAP 7.5-325MG 1 EACH TAB PO SCH (21:01)
[2019-11-17] MEDS: levETIRAcetam 500 MG TAB PO SCH (21:01)
[2019-11-17] MEDS: BACLOFEN 10 MG TAB PO SCH (21:01)
[2019-11-17] MEDS: TOPIRAMATE 100 MG TAB PO SCH (21:01)
[2019-11-17] MEDS: NICOTINE 21MG/24HR PATCH TRANSDERM SCH (21:02)
[2019-11-17] MEDS ORDERED: BACLOFEN 10 MG TAB PO SCH (22:00)
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
[2019-11-18] MEDS ORDERED: GABAPENTIN 300 MG CAP PO SCH (04:00)
[2019-11-18] MEDS: GABAPENTIN 300 MG CAP PO SCH ×2 (05:39→12:40)
[2019-11-18] MEDS ORDERED: LEVOTHYROXINE 88 MCG TAB PO SCH (06:30)
[2019-11-18 06:37] LABS: Basophils # (A) 0.1 k/uL (0-0.2); Basophils % (A) 1 %; Eosinophils # (A) 0.3 k/uL (0-0.7); Eosinophils % (A) 5 %; HCT 43.2 % (39.0-53.0); HGB 13.8 gm/dL (13.0-17.5); Hypochromasia Slight; Lymphocytes # (A) 1.5 k/uL (1.0-4.8); Lymphocytes % (A) 21 %; MCH 32.5 pg (25.0-35.0); MCV 101.6 fL (80.0-100.0); Macrocytosis Slight; Mean Platelet Volume 9.1; Monocytes # (A) 0.6 k/uL (0-1.0); Monocytes % (A) 8 %; Neutrophils # (A) 4.4 k/uL (1.3-7.7); Neutrophils % (A) 63 %; Platelet Count 136 k/uL (150-450); RBC 4.25 m/uL (4.30-5.90); RDW 14.3 % (11.5-15.5); WBC 6.9 k/uL (3.8-10.6)
[2019-11-18 06:56] LABS: ALT 18 U/L (4-49); AST 23 U/L (17-59); African American GFR (CKD) >90 (>60 ml/min/1.73 sqM); Albumin 3.5 g/dL (3.5-5.0); Alkaline Phosphatase 69 U/L (38-126); Anion Gap 5 mmol/L; Blood Urea Nitrogen 16 mg/dL (9-20); Calcium 8.8 mg/dL (8.4-10.2); Carbon Dioxide 22 mmol/L (22-30); Chloride 113 mmol/L (98-107); Glucose 90 mg/dL (74-99); Non-African American GFR(CKD) >90 (>60 ml/min/1.73 sqM); Potassium 4.3 mmol/L (3.5-5.1); Sodium 140 mmol/L (137-145); Total Bilirubin 0.3 mg/dL (0.2-1.3); Total Protein 5.7 g/dL (6.3-8.2)
[2019-11-18] MEDS ORDERED: PANTOPRAZOLE 40 MG TABLET PO SCH (07:30)
[2019-11-18] MEDS: IPRATROPIUM 0.5 MG/2.5 ML NEBU INHALATION SCH ×2 (07:51→12:19)
[2019-11-18] MEDS: FLUTICASONE 110 MCG INHALER INHALATION SCH (07:53)
[2019-11-18] MEDS ORDERED: NON FORMULARY DRUG (Umeclidinium Bromide [Incruse Ellipta] 1 PUFF) INHALATION SCH (08:00)
[2019-11-18] MEDS ORDERED: AMINOPHYLLINE 500 MG/20 ML VIAL IV PRN (08:23)
[2019-11-18] MEDS ORDERED: CAFFEINE CITRATE 60 MG/3 ML VIAL IV PRN (08:23)
[2019-11-18] MEDS ORDERED: REGADENOSON 0.4 MG/5 ML SYRINGE IV ONE (08:23)
[2019-11-18] MEDS ORDERED: NON FORMULARY DRUG (Omeprazole 20 MG) PO SCH (09:00)
[2019-11-18] MEDS ORDERED: ATORVASTATIN 40 MG TAB PO SCH (09:00)
[2019-11-18] MEDS ORDERED: TOPIRAMATE 200 MG PO SCH (09:00)
[2019-11-18] MEDS ORDERED: [UNRECOGNIZED DRUG - REMARK] EA NOSTRIL SCH (09:00)
[2019-11-18] MEDS ORDERED: ASPIRIN 81 MG PO SCH (09:00)
[2019-11-18] MEDS ORDERED: FLUTICASONE 50MCG/SPRAY NASAL 16GM EA NOSTRIL SCH (09:00)
[2019-11-18] MEDS ORDERED: ISOSORBIDE MONONITRATE ER 60 MG TAB.ER.24H PO SCH ×2 (09:00)
[2019-11-18] MEDS ORDERED: lisinopriL 20 MG TAB PO SCH (09:00)
[2019-11-18] MEDS ORDERED: LORATADINE 10 MG TAB PO SCH ×2 (09:00)
[2019-11-18] MEDS ORDERED: NON FORMULARY DRUG (Levothyroxine Sodium [Synthroid] 175 MCG) PO SCH (09:00)
[2019-11-18] MEDS ORDERED: SUCRALFATE 1 GM TAB PO SCH ×2 (09:00)
[2019-11-18] MEDS ORDERED: NICOTINE 21MG/24HR PATCH TRANSDERM SCH (09:00)
[2019-11-18] MEDS ORDERED: FERROUS SULFATE 325 MG TAB PO SCH ×2 (09:00)
[2019-11-18] MEDS ORDERED: NON FORMULARY DRUG (Lisinopril [Lisinopril] 40 MG) PO SCH (09:00)
--- NOTE | 2019-11-18 10:03 | CONS ---
CONSULTATION Mr. Valderrama is a 64-year-old male with known history of chronic tobacco use, hypertension, who presented with symptoms of chest discomfort. The patient smokes up to 4 packs a day. He has been followed by Dr. Shay and underwent cardiac catheterization by Dr. Shay in August 2017 and was found to have mild to moderate obstructive disease. He has been complaining of chest discomfort on and off for the last few days. Yesterday while at [facility] picking up his medication, he had an episode of discomfort and dyspnea. Patient came into the emergency room and subsequently admitted. Patient is feeling well at this time. He denies any dizziness or palpitation. He denies any syncope. He has no significant peripheral edema. No PND, orthopnea. He has chronic dyspnea on exertion as well as wheezing. He has a history of severe neuropathy, chronic lower back pain, history of hypertension and seizure. His discomfort lasted for few minutes yesterday. His coronary risk factors are remarkable for the smoking, hypertension. His lipid profile is not available to me. He is a nondiabetic. HOME MEDICATIONS: Included ropinirole, Singulair, Neurontin, Carafate, Prilosec, Synthroid, Imdur, toperamide, iron, includes Ellipta, Fioricet, Claritin, Neurontin, Keppra, and Ventolin. REVIEW OF SYSTEMS: RESPIRATORY SYSTEM: He has dyspnea on exertion, history of wheezing, chronic tobacco use. GI SYSTEM: No recent GI bleeding, no peptic ulcer disease. SYSTEM: No dysuria or hematuria. NERVOUS SYSTEM: He had a history of seizure, but not recently and history of stroke. PHYSICAL EXAMINATION: A 64-year-old male, alert, oriented, in no apparent distress, appears older than stated age. Blood pressure 127/60 with a heart rate in the 80s. HEAD: Normocephalic. EYES: Sclerae nonicteric. NECK: Good upstroke, no bruit. LUNGS: With decreased air exchange bilaterally and scattered wheezes. HEART: Regular rate and rhythm, S1, S2. No S3. No rub appreciated. ABDOMEN: Soft, nontender, positive bowel sounds, no organomegaly. EXTREMITIES: No edema. LAB DATA: Revealed troponin less than 0.012 for 3 samples. BUN creatinine 16 and 0.76, potassium 4.3, hemoglobin is 13.8. In the past, his LDL was 124. Chest x-ray shows evidence of COPD. IMPRESSION: 1. Chest discomfort of unclear etiology, has atypical features for ischemic heart disease probably noncardiac. 2. history of coronary artery disease by cardiac catheterization 2 years ago that with noncritical. 3. Chronic tobacco use. 4. Hypertension. 5. Hyperlipidemia, not treated. 6. History of seizure disorder. RECOMMENDATION: I have recommended to add to his regimen aspirin as well as a statin. I have recommended proceeding with stress test to further evaluate his status and guide his treatment. I will also obtain echocardiogram with Doppler and depending on the results of testing, further recommendation will be made. Thank you for this consult. Will follow with you. MMODL / IJN: [id number] /
--- NOTE | 2019-11-18 10:35 | ECHOF ---
Referral Reason:cp MEASUREMENTS -------- HEIGHT: 180.3 cm WEIGHT: 82.1 kg BP: IVSd: 1.2 cm (0.6 - 1.1) LVIDd: 4.8 cm (3.9 - 5.3) LVPWd: 1.3 cm (0.6 - 1.1) IVSs: 1.5 cm LVIDs: 2.5 cm LVPWs: 1.9 cm LAESV Index (A-L): 25.21 ml/m Ao Diam: 3.2 cm (2.0 - 3.7) AV Cusp: 2.5 cm (1.5 - 2.6) LA Diam: 3.0 cm (2.7 - 3.8) MV EXCURSION: 14.414 mm (> 18.000) MV EF SLOPE: 121 mm/s (70 - 150) EPSS: 0.7 cm MV E Noah: 1.00 m/s MV DecT: 211 ms MV A Noah: 0.81 m/s MV E/A Ratio: 1.23 RAP: 5.00 mmHg RVSP: 28.23 mmHg FINDINGS -------- Sinus rhythm. This was a technically difficult study with suboptimal views. The left ventricular size is normal. There is mild concentric left ventricular hypertrophy. Overa ll left ventricular systolic function is normal with, an EF between 55 - 60 %. The right ventricle is normal in size. Normal LA size by volume 22+/-6 ml/m2. The right atrial size is normal. 5.0mg of Lumason was utilized for enhancement of images The aortic valve was not well visualized. The mitral valve leaflets are mildly thickened. There is trace to mild mitral regurgitation. The tricuspid valve appears structurally normal. Trace tricuspid regurgitation present. Right jose luis tricular systolic pressure is normal at < 35 mmHg. The pulmonic valve was not well visualized. There is no pulmonic regurgitation present. The aortic root size is normal. IVC Not well visulized. There is no pericardial effusion. CONCLUSIONS -------- 1. This was a technically difficult study with suboptimal views. 2. There is mild concentric left ventricular hypertrophy. 3. Overall left ventricular systolic function is normal with, an EF between 55 - 60 %. 4. 5. Normal LA size by volume 22+/-6 ml/m2. 6. 5.0mg of Lumason was utilized for enhancement of images 7. The aortic valve was not well visualized. 8. The mitral valve leaflets are mildly thickened. 9. There is trace to mild mitral regurgitation. 10. Trace tricuspid regurgitation present. 11. There is no pulmonic regurgitation present. 12. There is no pericardial effusion. SENIOR RESEARCH MANAGER: Apryl Marie RDCS
[2019-11-18] MEDS: HYDROcodone/APAP 7.5-325MG 1 EACH TAB PO SCH (12:39)
[2019-11-18] MEDS: BACLOFEN 10 MG TAB PO SCH ×2 (12:39→14:57)
[2019-11-18] MEDS: NICOTINE 21MG/24HR PATCH TRANSDERM SCH (12:40)
[2019-11-18] MEDS: levETIRAcetam 500 MG TAB PO SCH (12:40)
[2019-11-18] MEDS: TOPIRAMATE 100 MG TAB PO SCH (12:41)
--- NOTE | 2019-11-18 12:54 | EST ---
EXERCISE STRESS AGE: 64 SEX: M HT: 71" WT: 181 PROTOCOL: Lexiscan Cardiolite Stress Test HEART RATE REST: 48 BLOOD PRESSURE REST: 113/71 MAXIMUM HEART RATE ACHIEVED: 89 MAXIMUM BLOOD PRESSURE: 127/66 85% MPHR: 132 100% MPHR: 155 INDICATIONS: Chest pain. CLINICAL INFORMATION: Baseline rhythm is sinus mechanism, rate 48, normal axis and intervals, poor progression from V1 to V3. Baseline blood pressure 113/71 mmHg. Patient received injection of Lexiscan. Electrocardiograph monitoring revealed rare PVCs. There was no evidence of diagnostic ischemic ST deviation. Cardiolite was injected per protocol. CONCLUSION: 1. Nondiagnostic electrocardiograph stress testing. 2. Nuclear images will be reported separately. MMODL / IJN: [id number] /
--- NOTE | 2019-11-18 13:39 | NM ---
EXAMINATION TYPE: NM stress lexiscan cardiolite DATE OF EXAM: 11/18/2019 COMPARISON: NONE HISTORY: Precordial chest pain and abnormal EKG TECHNIQUE: After the intravenous administration of 10.3 mCi Tc 99m Sestamibi - Cardiolite resting SP ECT images acquired 65 minutes post injection. The patient received 0.4mg Lexiscan, 25.1 mCi Tc 99m Sestamibi - Stress images obtained [address] injection FINDINGS: Review of stress and rest SPECT images demonstrates no distinct perfusion abnormality. Gated analysi s shows normal wall motion with an estimated left ventricular ejection fraction of 60% . IMPRESSION: No scintigraphic evidence for reversible ischemia.
--- NOTE | 2019-11-18 14:16 | P.DS ---
Providers Date of admission: 11/17/19 13:59 Expected date of discharge: 11/18/19 Attending physician: Ayden Hobbs Consults: 11/17/19 16:49 Consult Physician Routine Consulting Provider: Basil Yousif Consult Reason/Comments: chest pain syncope Do you want consulting provider notified?: Yes Placement Type Exists?: Yes Primary care physician: Kolby Padgett [place] [facility] Course: 64-year-old male one of Dr. Padgett's patient with past medical history of COPD, hypertension, seizure activity, chronic lower back pain and severe neuropathy who was hospitalized in July 2017 for procedure. Also ended up having heart catheter in August [address] Shay which showed mild coronary artery disease with RCA to 50% nothing require angioplasty the time. Patient has been doing well until the last 48 hours where patient has developed midsternal chest pain radiated toward the left side associated with palpitation nausea feeling mild lightheadedness dizziness and worsening symptom with exertion. Symptoms become quite bit worse today ended up coming to the emergency department at [facility] where he was seen and evaluated ended up having no major change in EKG, patient CK with troponin came back to be normal. Patient was started on heparin drip nitro and admitted to the hospital for unstable angina. 11/17: Troponins have been negative on 3 draws. CMP unremarkable. Platelet count 136. Patient has been seen by cardiology and scheduled for Lexiscan stress test which reported no reversible ischemia. Echocardiogram revealed mild concentric left hypertrophy, EF 55-60%, trace to mild mitral regurgitation, trace tricuspid regurgitation. Initial heart rate running in the 40s and atenolol placed on hold. Heart rate this morning running in the 50s to 70s, blood pressure 145/83, pulse ox 97% on room air. Patient hold atenolol until follow-up with his PCP or Dr. Yousif. Patient was cleared for discharge by cardiology. Patient discharged home in stable condition. Discharge diagnoses: 1 chest pain and unstable angina 2 known mild coronary disease 3 COPD 4 history of seizure 5 hypertension 6 chronic neuropathy 7 hypothyroidism 8 chronic pain syndrome 9 severe GERD 10 chronic iron deficiency anemia of chronic disease 11. Chronic thrombocytopenia 12. COVID-19 infection not present Discharge plan: Home Impression and plan of care have been directed as dictated by the signing physician. Virginia Link nurse practitioner acting as scribe for signing physician. Patient Condition at Discharge: Good Plan - Discharge Summary New Discharge Prescriptions: No Action Topiramate [Trokendi Xr] 200 mg PO DAILY Atenolol 25 mg PO BID rOPINIRole HCL [Requip] 1 mg PO HS Hydrocodone/Acetaminophen [[place] 7.5-325] 1 tab PO BID Gabapentin [Neurontin] 300 mg PO BID@0400,1200 Baclofen 10 mg PO TID Lisinopril 40 mg PO DAILY Fluticasone Propionate [Flonase Allergy Relief] 2 spray EA NOSTRIL DAILY Loratadine [Claritin] 10 mg PO DAILY Umeclidinium [place] [Incruse Ellipta] 1 puff INHALATION RT-DAILY Butalb/Acetaminophen/Caffeine [Fioricet 50-325-40] 1 tab PO Q8H PRN PRN Reason: Migraine Headache Gabapentin [Neurontin] 600 mg PO HS levETIRAcetam [Keppra] 500 mg PO BID Albuterol Inhaler [Ventolin Hfa Inhaler] 2 puff INHALATION RT-QID PRN PRN Reason: Shortness Of Breath Ferrous Sulfate [Iron] 325 mg PO DAILY Budesonide [Pulmicort Flexhaler] 2 puff INHALATION RT-BID Isosorbide Mononitrate ER [Imdur] 60 mg PO QAM Levothyroxine Sodium [Synthroid] 175 mcg PO QAM Montelukast Sodium [Singulair] 10 mg PO HS Omeprazole [PriLOSEC] 20 mg PO DAILY Sucralfate [Carafate] 1 mg PO DAILY Discharge Medication List Baclofen 10 mg PO TID 08/04/17 [History] Fluticasone Propionate [Flonase Allergy Relief] 2 spray EA NOSTRIL DAILY 08/04/17 [History] Gabapentin [Neurontin] 300 mg PO BID@0400,1200 08/04/17 [History] Hydrocodone/Acetaminophen [[place] 7.5-325] 1 tab PO BID 08/04/17 [History] Lisinopril 40 mg PO DAILY 08/04/17 [History] Topiramate [Trokendi Xr] 200 mg PO DAILY 08/04/17 [History] rOPINIRole HCL [Requip] 1 mg PO HS 08/04/17 [History] Loratadine [Claritin] 10 mg PO DAILY 09/04/17 [History] Albuterol Inhaler [Ventolin Hfa Inhaler] 2 puff INHALATION RT-QID PRN 11/17/19 [History] Budesonide [Pulmicort Flexhaler] 2 puff INHALATION RT-BID 11/17/19 [History] Butalb/Acetaminophen/Caffeine [Fioricet 50-325-40] 1 tab PO Q8H PRN 11/17/19 [History] Ferrous Sulfate [Iron] 325 mg PO DAILY 11/17/19 [History] Gabapentin [Neurontin] 600 mg PO HS 11/17/19 [History] Isosorbide Mononitrate ER [Imdur] 60 mg PO QAM 11/17/19 [History] Levothyroxine Sodium [Synthroid] 175 mcg PO QAM 11/17/19 [History] Montelukast Sodium [Singulair] 10 mg PO HS 11/17/19 [History] Omeprazole [PriLOSEC] 20 mg PO DAILY 11/17/19 [History] Sucralfate [Carafate] 1 mg PO DAILY 11/17/19 [History] Umeclidinium [place] [Incruse Ellipta] 1 puff INHALATION RT-DAILY 11/17/19 [History] levETIRAcetam [Keppra] 500 mg PO BID 11/17/19 [History] Aspirin 81 mg PO DAILY chew 11/18/19 [Rx] Atenolol 25 mg PO BID #0 11/18/19 [Rx] Atorvastatin [Lipitor] 40 mg PO DAILY #30 tab 11/18/19 [Rx] Nicotine 21Mg/24Hr Patch [Habitrol] 1 patch TRANSDERM DAILY #30 patch 11/18/19 [Rx] Follow up Appointment(s)/Referral(s): Benito Shay MD [STAFF PHYSICIAN] - 2 Weeks Kolby Padgett MD [Primary Care Provider] - 1 Week
[2019-11-19 09:33] VITALS: BP 145/83; PULSE 57; RESP 16; TEMP 97.8
== END 2019-11-18 15:33 | disposition home or self-care (01) ==
LOC: EC 10:59 → 1SOBS 13:59
PROVIDERS: ADMIT Internal Medicine Geriatric Medicine; ATTEND Internal Medicine Geriatric Medicine
DX: R07.89 Other chest pain (principal); I25.110 Atherosclerotic heart disease of native coronary artery with unstable angina pectoris; J44.9 Chronic obstructive pulmonary disease, unspecified; R56.9 Unspecified convulsions; I10 Essential (primary) hypertension; G89.4 Chronic pain syndrome; M54.5 Low back pain; G62.9 Polyneuropathy, unspecified; F17.210 Nicotine dependence, cigarettes, uncomplicated; E03.9 Hypothyroidism, unspecified; G43.909 Migraine, unspecified, not intractable, without status migrainosus; K21.9 Gastro-esophageal reflux disease without esophagitis; D50.9 Iron deficiency anemia, unspecified; D63.8 Anemia in other chronic diseases classified elsewhere; E78.5 Hyperlipidemia, unspecified; D69.6 Thrombocytopenia, unspecified; Z91.013 Allergy to seafood; Z91.048 Other nonmedicinal substance allergy status; Z79.890 Hormone replacement therapy; Z79.891 Long term (current) use of opiate analgesic; Z79.899 Other long term (current) drug therapy; Z80.9 Family history of malignant neoplasm, unspecified; Z20.828 Contact with and (suspected) exposure to other viral communicable diseases
CPT/HCPCS: 93005 ×2; 99285; 36415; 94640 ×4; 93017; 80053 ×2; 82550; 82553; 84484 ×2; 85025 ×2; 85610; 85730; 71046; 78452; G0378; C8929; U0003; A9500; S4990 ×2; J2785; Q9950; 93306

== ENCOUNTER → 2020-03-10 | Outpatient (CLI) | payer MEDICARE, OTHER ==
[2020-03-10 12:40] LABS: HCT 44.1 % (39.0-53.0); Hypochromasia Slight; MCH 32.6 pg (25.0-35.0); MCHC 31.7 g/dL (31.0-37.0); MCV 102.8 fL (80.0-100.0); Macrocytosis Slight; Mean Platelet Volume 8.6; Platelet Count 160 k/uL (150-450); RBC 4.29 m/uL (4.30-5.90); RDW 13.6 % (11.5-15.5); WBC 8.8 k/uL (3.8-10.6)
[2020-03-10 12:51] LABS: African American GFR (CKD) >90 (>60 ml/min/1.73 sqM); Anion Gap 5 mmol/L; Blood Urea Nitrogen 17 mg/dL (9-20); Carbon Dioxide 22 mmol/L (22-30); Chloride 115 mmol/L (98-107); Non-African American GFR(CKD) >90 (>60 ml/min/1.73 sqM); Potassium 4.3 mmol/L (3.5-5.1); Sodium 142 mmol/L (137-145)
== END | disposition home or self-care (01) ==
LOC: LABPAT 11:00
PROVIDERS: ATTEND Internal Medicine Interventional Cardiology
DX: Z01.818 Encounter for other preprocedural examination (principal); I25.10 Atherosclerotic heart disease of native coronary artery without angina pectoris
CPT/HCPCS: 80051; 82565; 84520; 85027

== ENCOUNTER 2020-03-13 06:14 | Day surgery (SDC) | payer MEDICARE, OTHER ==
[2020-03-10 09:21] VITALS: BMI 27.0
[~2020-03-13 06:14] MED LIST changes: +ALPRAZolam 0.25 MG TAB PO PRN; -ASPIRIN 325 MG TAB PO ONE
[2020-03-13] MEDS ORDERED: FAMOTIDINE 20 MG/2 ML VIAL IV STA (06:39)
[2020-03-13] MEDS ORDERED: methylPREDNISolone SOD SUCCI 125 MG/2 ML VIAL IV ONE (07:00)
[2020-03-13] MEDS ORDERED: ASPIRIN 325 MG TAB PO ONE (07:00)
[2020-03-13] MEDS ORDERED: diphenhydrAMINE 50 MG/ML 1 ML VIAL IVP ONE (07:00)
[2020-03-13 07:06] LABS: Basophils # (A) 0.1 k/uL (0-0.2); Basophils % (A) 1 %; Eosinophils # (A) 0.5 k/uL (0-0.7); Eosinophils % (A) 6 %; HCT 46.6 % (39.0-53.0); HGB 14.7 gm/dL (13.0-17.5); Lymphocytes # (A) 1.8 k/uL (1.0-4.8); Lymphocytes % (A) 22 %; MCH 32.1 pg (25.0-35.0); MCHC 31.4 g/dL (31.0-37.0); Macrocytosis Slight; Mean Platelet Volume 8.5; Monocytes # (A) 0.7 k/uL (0-1.0); Monocytes % (A) 9 %; Neutrophils # (A) 5.1 k/uL (1.3-7.7); Neutrophils % (A) 61 %; Platelet Count 169 k/uL (150-450); RBC 4.57 m/uL (4.30-5.90); RDW 13.6 % (11.5-15.5); WBC 8.3 k/uL (3.8-10.6)
[2020-03-13 07:08] VITALS: RESP 18; TEMP 98.4
[2020-03-13 07:18] LABS: African American GFR (CKD) >90 (>60 ml/min/1.73 sqM); Anion Gap 9 mmol/L; Blood Urea Nitrogen 16 mg/dL (9-20); Calcium 8.9 mg/dL (8.4-10.2); Carbon Dioxide 20 mmol/L (22-30); Chloride 113 mmol/L (98-107); Glucose 108 mg/dL (74-99); Non-African American GFR(CKD) >90 (>60 ml/min/1.73 sqM); Potassium 3.8 mmol/L (3.5-5.1); Sodium 142 mmol/L (137-145)
[2020-03-13] MEDS ORDERED: MIDAZOLAM 2 MG/2 ML VIAL IV ONE (07:41)
[2020-03-13] MEDS ORDERED: LIDOCAINE 1% INJ 10MG/ML (20 ML MDV) SQ ONE (07:41)
[2020-03-13] MEDS ORDERED: HEPARIN SODIUM 1,000 UN/ML (10ML VL) IV ONE (07:44)
[2020-03-13] MEDS: VERAPAMIL SYRINGE (5 MG/10 ML) INTRAARTER ONE ×3 (07:44→08:00)
[2020-03-13] MEDS ORDERED: HYDROmorphone 1 MG/ML 1 ML SYRINGE IVP ONE (07:56)
[2020-03-13] MEDS ORDERED: IOPAMIDOL-370 125ML BTL INJ ONE (07:59)
[2020-03-13] MEDS ORDERED: RX INFO: IV CONTRAST WAS GIVEN 1 EACH MISC MISCELLANE PRN (08:14)
[2020-03-13] MEDS ORDERED: SODIUM CHLORIDE 0.9% 1,000 ML IV SCH (08:15)
--- NOTE | 2020-03-13 09:44 | CC ---
CARDIAC CATHETERIZATION REPORT DATE OF SERVICE: 03/13/2020 PERFORMING PHYSICIAN: Benito Shay MD. PROCEDURE PERFORMED: Selective right and left coronary angiogram. 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 APPROACH: Right radial artery. COMPLICATION: None. LEVEL OF SEDATION: Moderate with sedation length of 21 minutes. APPROACH: Right radial artery. PROCEDURE DESCRIPTION: After obtaining an informed consent, the patient was brought to the cardiac [facility]. The right radial artery was cannulated using micropuncture technique, the micropuncture wire passed easily, then I placed a 6-Setswana sheath at the right radial artery. After that, I gave the patient 2 mg of verapamil IA and 6000 units of heparin IV. Selective right and left coronary angiogram performed with JR4 and JL3.5 catheters. Both catheters were 5-Setswana catheters. The procedure was completed without any complication. SELECTIVE CORONARY ANGIOGRAM: 1. The right coronary artery is a large caliber vessel and it is dominant vessel. The proximal RCA is tortuous but appeared to be angiographically normal. The mid RCA has a lesion, appeared to be in the range of 40%-50%, seems to be unchanged compared to before. The RCA distally is angiographically normal. 2. The left main is angiographically normal, it bifurcates into left circumflex and ramus intermedius and left anterior descending artery. 3. The left circumflex is a large caliber vessel, it is a nondominant vessel. The left circumflex has mild disease in the midportion. Then after that, gives rise into a large OM branch which appeared to be angiographically normal. 4. The ramus intermedius is a large caliber vessel with mild to moderate disease in the proximal portion. 5. The LAD is a large caliber vessel and does reach the apex. The LAD is tortuous but angiographically normal. CONCLUSION: Intermediate disease involving the RCA as well as ramus intermedius appeared to be unchanged compared to before. POSTPROCEDURE MANAGEMENT: 1. Giving the above anatomy, I did recommend maximized medical treatment. 2. Smoking cessation was discussed with the patient again. 3. Follow up with the patient. MMODL / IJN: [id number] /
[2020-03-13 11:49] VITALS: BP 121/65; PULSE 56
== END 2020-03-13 14:50 | disposition home or self-care (01) ==
LOC: CATHCVL 06:14
PROVIDERS: ATTEND Internal Medicine Interventional Cardiology
DX: I25.10 Atherosclerotic heart disease of native coronary artery without angina pectoris (principal); I77.1 Stricture of artery; R07.89 Other chest pain; I10 Essential (primary) hypertension; E78.5 Hyperlipidemia, unspecified; F17.210 Nicotine dependence, cigarettes, uncomplicated; E78.00 Pure hypercholesterolemia, unspecified; I73.9 Peripheral vascular disease, unspecified; Z98.890 Other specified postprocedural states; Z79.899 Other long term (current) drug therapy; Z79.82 Long term (current) use of aspirin; Z79.890 Hormone replacement therapy; Z91.048 Other nonmedicinal substance allergy status; Z91.013 Allergy to seafood; Z71.6 Tobacco abuse counseling; Z82.49 Family history of ischemic heart disease and other diseases of the circulatory system
CPT/HCPCS: 93454; 80048; 85025; C1769 ×2; C1894; J2250; J1200; J2930; J2001; J1644; J1170; Q9967; 93458

== ENCOUNTER → 2022-10-26 | Outpatient (CLI) | payer MEDICARE, OTHER ==
--- NOTE | 2022-10-27 07:12 | MR ---
EXAMINATION TYPE: MR Prostate wo/w con DATE OF EXAM: 10/26/2022 9:13 AM COMPARISON: None. CLINICAL INDICATION:Male, 67 years old with history of C61; TECHNIQUE: Multi-planar, multi-sequence imaging of the pelvis is performed prior to and following the uncomplicated administration of bolus intravenous gadolinium. CONTRAST: 8.5 Gadavist Interpretive Criteria: PI-RADS v2.1 SERUM PSA: 11.6 and 09/18/2022. 9.4 and 03/13/2022. 7.17 on 12/02/2021. SURGICAL PATHOLOGY: Left lateral base and Left base+3+4 = 7 Mitchell FINDINGS: Prostatic dimensions: 4.5 x 3.5 x 3.0 cm. "Bullet" Volume:30.93 (PSA density=0.38 ng/mL/mL) CENTRAL GLAND (Central and Transition Zones/CZ+TZ): Multiple bilateral, heterogenous appearing hypertrophic stromal nodules, without suspicious lesion. M edian lobe hypertrophy with protrusion into the base of the bladder. (PI-RADS 2) PERIPHERAL ZONE (PZ): Left posterior peripheral zone series 501 image 23 low indistinct T2 signal without evidence for high DWI or low ADC signal area measures roughly 2.2 x 10 mm in correlates with pathology positive biopsy . (PI-RADS 3) SEMINAL VESICLES (SV): Symmetric and unremarkable. PERIPROSTATIC TISSUES: Unremarkable. LYMPH NODES: No enlarged lymph nodes. A right mesorectal lesion seen on one sequence becomes very low signal on fa t saturation sequences series 301 image 22 and 501 image 33 REMAINING PELVIS: Bladder wall is within normal limits given distention. No abnormal free or organized intrapelvic fluid collection. No pathologic bowel dilation or mural thickening. Left fat-containing inguinal hernia. Scattered colonic diverticula. OSSEOUS STRUCTURES: No suspicious osseous abnormality. IMPRESSION: 1. PI-RADS 3 lesion corresponding with area of prior positive biopsy within the peripheral zone mid g land and base. 2. No suspicious osseous lesion. No lymphadenopathy. No evidence of prostate adenocarcinoma involving the periprostatic tissues.
== END | disposition home or self-care (01) ==
LOC: RADMRIMAIN 07:34
PROVIDERS: ATTEND Urology
DX: C61 Malignant neoplasm of prostate (principal)
CPT/HCPCS: 72197; A9585

== ENCOUNTER → 2022-11-18 | Outpatient (CLI) | payer MEDICARE, OTHER ==
[2022-11-18 13:43] LABS: Appearance,Urine Clear (Clear); Bilirubin,Urine Negative (Negative); Blood,Urine Negative (Negative); Color,Urine Light Yellow; Glucose,Urine (UA) Negative (Negative); Ketones,Urine Negative (Negative); Leukocyte Esterase,Urine Negative (Negative); Nitrite,Urine Negative (Negative); Protein,Urine Negative (Negative); Specific Gravity,Urine 1.012 (1.001-1.035); Urobilinogen,Urine <2.0 mg/dL (<2.0)
[2022-11-18 16:06] LABS: BUN/Creat Ratio 19.44 Ratio (12.00-20.00); Blood Urea Nitrogen 17.5 mg/dL (9.0-27.0); Calcium 9.3 mg/dL (8.7-10.3); Carbon Dioxide 22.8 mmol/L (21.6-31.8); Chloride 113 mmol/L (96-109); Glucose 101 mg/dL (70-110); Potassium 4.6 mmol/L (3.5-5.5); Sodium 145 mmol/L (135-145)
[2022-11-18 16:54] LABS: Basophils # (A) 0.07 X 10*3/uL (0.00-0.10); Basophils % (A) 0.8 %; Eosinophils # (A) 0.27 X 10*3/uL (0.04-0.35); Eosinophils % (A) 3.3 %; HCT 45.2 % (39.6-50.0); HGB 14.5 d/dL (12.0-15.0); Lymphocytes # (A) 2.25 X 10*3/uL (0.90-5.00); Lymphocytes % (A) 27.3 %; MCHC 32.1 d/dL (32.0-37.0); MCV 99.8 FL (80.0-97.0); Mean Platelet Volume 11.9 FL (9.5-12.2); Monocytes # (A) 1.09 X 10*3/uL (0.20-1.00); Monocytes % (A) 13.2 %; NRBC Per 100 WBC 0 X 10*3/uL (0.00-0.01); Neutrophils # (A) 4.52 X 10*3/uL (1.80-7.70); Neutrophils % (A) 54.9 %; Platelet Count 168 X 10*3/uL (140-440); RBC 4.53 X 10*6/uL (4.40-5.60); RDW 15.1 % (11.5-14.5); WBC 8.24 X 10*3/uL (4.50-10.00)
== END | disposition home or self-care (01) ==
LOC: LABPAT 12:29
PROVIDERS: ATTEND Internal Medicine
DX: Z01.812 Encounter for preprocedural laboratory examination (principal); C61 Malignant neoplasm of prostate; R35.0 Frequency of micturition
CPT/HCPCS: 80048; 81003; 85025; 87086

== ENCOUNTER → 2023-01-09 | Outpatient (CLI) | payer MEDICARE, OTHER ==
--- NOTE | 2023-01-09 09:54 | US ---
EXAMINATION TYPE: US abdomen complete DATE OF EXAM: 01/09/2023 COMPARISON: NONE CLINICAL INDICATION: Male, 67 years old with history of C61 Malignant neoplasm of prostate; Malignant neoplasm of prostate. TECHNIQUE: Multiple sonographic images of the abdomen are obtained. FINDINGS: EXAM MEASUREMENTS: Liver Length: 17.6 cm Gallbladder Wall: 0.26 cm CBD: 0.88 cm Spleen: 8.8 cm Right Kidney: 12.0 x 5.4 x 5.4 cm Left Kidney: 12.0 x 4.9 x 5.8 cm METAL FURNITURE REPAIRER NOTES: Limited due to gas and patient body habitus. Pancreas: Obscured Liver: Appears coarse. Measures upper limits. Limited visibility of left lobe due to gas. Gallbladder: Appears enlarged measuring 11.1 cm in length. Evidence for sonographic Harrison's sign: Patient feels discomfort in RUQ. CBD: Appears dilated. Spleen: Slightly limited. Right Kidney: Anechoic area seen lower pole: 2.5 x 2.8 x 2.2 cm. Left Kidney: Anechoic area seen upper pole: 2.7 x 2.2 x 2.5 cm. Upper IVC: Slightly limited. Abd Aorta: Proximal segment appears aneurysmal measuring 3.2 x 3.2 cm. Mid, distal, and iliacs were obscured*. The pancreas is obscured by overlying bowel gas. Liver is upper limits of normal for size. It demonst rates coarse in appearance. No focal lesion identified. Limited visibility of the left hepatic lobe d ue to overlying bowel gas. Gallbladder is mildly distended without evidence of wall thickening, peric holecystic fluid, or cholelithiasis. Common bile duct is mildly dilated. The visualized portions of t he spleen are unremarkable. Both kidneys demonstrate no evidence of hydronephrosis or nephrolithiasis . Simple cysts identified within both kidneys. The visualized portion of the upper IVC is within norm al limits. The proximal abdominal aorta measures up to 3.2 cm. The mid and distal portions of the abd ominal aorta are obscured by overlying bowel gas. IMPRESSION: Limited examination due to overlying bowel gas. 1. Mild common bile duct dilatation measuring up to 0.88 cm. Correlation with obstructive biliary lab s is recommended. Consider further evaluation with MRCP. 2. Mild aneurysmal dilatation of the proximal abdominal aorta measuring up to 3.2 cm. The mid and dis walter portions of the abdominal aorta are obscured by overlying bowel gas. 3. Bilateral simple renal cysts.
[2023-01-09 13:20] LABS: Basophils # (A) 0.07 X 10*3/uL (0.00-0.10); Basophils % (A) 0.9 %; Eosinophils # (A) 0.61 X 10*3/uL (0.04-0.35); Eosinophils % (A) 7.5 %; HCT 47.1 % (39.6-50.0); HGB 14.6 d/dL (13.0-17.0); Lymphocytes # (A) 2.17 X 10*3/uL (0.90-5.00); Lymphocytes % (A) 26.8 %; MCH 31.7 pg (27.0-32.0); MCV 102.4 FL (80.0-97.0); Mean Platelet Volume 11.9 FL (9.5-12.2); Monocytes # (A) 1.01 X 10*3/uL (0.20-1.00); Monocytes % (A) 12.5 %; NRBC Per 100 WBC 0 X 10*3/uL (0.00-0.01); Neutrophils # (A) 4.21 X 10*3/uL (1.80-7.70); Neutrophils % (A) 51.8 %; Platelet Count 148 X 10*3/uL (140-440); RDW 15.2 % (11.5-14.5); WBC 8.11 X 10*3/uL (4.50-10.00)
[2023-01-09 13:44] LABS: ALT 14 U/L (10-49); AST 16 U/L (14-35); Albumin 4.5 d/dL (3.8-4.9); Albumin/Globulin Ratio 2.37 Ratio (1.60-3.17); Alkaline Phosphatase 86 U/L (41-126); Bilirubin, Conjugated <0.20 mg/dL (0.20-0.40); Bilirubin,Unconjugated >0 mg/dL (0.20-1.00); Blood Urea Nitrogen 22.5 mg/dL (9.0-27.0); Carbon Dioxide 23.2 mmol/L (21.6-31.8); Chloride 112 mmol/L (96-109); Globulin 1.9 d/dL (1.6-3.3); Glucose 95 mg/dL (70-110); Potassium 4.9 mmol/L (3.5-5.5); Sodium 146 mmol/L (135-145); Total Bilirubin 0.2 mg/dL (0.3-1.2); Total Protein 6.4 d/dL (6.2-8.2)
== END | disposition home or self-care (01) ==
LOC: RADUSWWP 08:14
PROVIDERS: ATTEND Radiology Radiation Oncology
DX: C61 Malignant neoplasm of prostate (principal); K83.8 Other specified diseases of biliary tract; I71.40 Abdominal aortic aneurysm, without rupture, unspecified; N28.1 Cyst of kidney, acquired
CPT/HCPCS: 76700; 80048; 80076; 84153; 85025

== ENCOUNTER → 2023-01-31 | Outpatient (CLI) | payer MEDICARE, OTHER ==
--- NOTE | 2023-01-31 09:36 | MR ---
EXAMINATION: MRI liver without and with contrast with MRCP. DATE OF EXAMINATION: 01/31/2023. COMPARISON: None available. INDICATION: Malignant neoplasm of the prostate with abdominal pain. PROCEDURE: Multiplanar, multisequence images of the abdomen were obtained without and with contrast. MRCP imaging was also performed. 9 mL of Gadavist was given intravenously.. FINDINGS: LOWER CHEST : The visualized lung bases are clear. There are no pleural or pericardial effusions. ABDOMEN: Liver and Biliary system: No focal liver lesions are seen. The common bile duct measures up to 10 mm and tapers normally down to the ampulla with no structural lesions or stones.. Adrenal glands: There is a 2 cm right adrenal nodule compatible with an adrenal adenoma.. Kidneys and ureters: There is a 3.1 cm simple cyst in the upper pole of the left kidney. There is a simple cyst in the lower pole of the right kidney measuring 2.4 cm in diameter.. Spleen: Normal. Pancreas: Normal. Gallbladder: Normal. Lymph nodes, Peritoneum and mesentery: There is no mesenteric or retroperitoneal lymphadenopathy. Gastrointestinal tract: There are no dilated loops of bowel or free intraperitoneal air. . The appe ndix is normal. Aorta/IVC: No aortic aneurysm.. IVC normal. Abdominal wall: Normal. BONES: There are no osseous destructive lesions.. ADDITIONAL SIGNIFICANT FINDINGS: None. IMPRESSION: 1. No suspicious liver lesions identified.. 2. Mild dilation of the common bile duct up to 1 cm with no definitive obstructing stone or lesion id entified. 3. Simple bilateral renal cysts.
== END | disposition home or self-care (01) ==
LOC: RADMRIMAIN 07:09
PROVIDERS: ATTEND Radiology Radiation Oncology
DX: C61 Malignant neoplasm of prostate (principal); N28.1 Cyst of kidney, acquired; K83.8 Other specified diseases of biliary tract
CPT/HCPCS: 74183; A9585

== ENCOUNTER → 2023-02-14 | Outpatient (CLI) | payer MEDICARE, OTHER ==
--- NOTE | 2023-02-15 09:46 | PE ---
EXAMINATION TYPE: PET CT fusion skull to thigh DATE OF EXAM: 02/14/2023 CLINICAL INDICATION:Male, 67 years old with history of C61; TECHNIQUE: Following the intravenous administration of 6.05 mCi of F-18 FDG, whole body images are performed from the skull base to the midthigh. Images are reviewed on the computer in the coronal, a xial, and sagittal planes. Reconstructed rotating images are created on independent workstation and reviewed on the computer. A non-contrast CT is performed in conjunction with the PET scan. CT DLP: 496.55 mGycm, Automated exposure control for dose reduction was used. COMPARISON: CT None, PET/CT None, MRI prostate 10/26/2022, MRI liver 01/31/2023 FINDINGS: Mediastinal SUV mean is 1.2. Hepatic parenchyma SUV mean is 5.0. SKULL BASE AND NECK: No suspicious radiotracer activity. CHEST, MEDIASTINUM, AND HILAR REGION: No suspicious radiotracer activity. ABDOMEN AND PELVIS: Radiotracer uptake within the left posterior and lateral prostate gland base/mid gland max SUV 9.2. T his is felt to extend into the central left seminal vesicles. No additional sites of metastatic disea se are identified. MUSCULOSKELETAL STRUCTURES: No suspicious radiotracer activity. OTHER CT: Bilaterally aphakia. Atherosclerosis of the arterial vasculature. Heart is mildly enlarged for size. Right renal cyst. Fat-containing umbilical hernia. Bilateral fat-containing inguinal hernia s left greater than right. Scattered colonic diverticula. Right adrenal nodule likely representing li pid rich adrenal adenoma. IMPRESSION: Radiotracer uptake within the left posterior and lateral prostate gland base/mid gland with possible extension into the seminal vesicles near midline in the left. Findings compatible with prior positive biopsy. No additional sites of metastatic disease visualized.
== END | disposition home or self-care (01) ==
LOC: RADPETMAIN 07:24
PROVIDERS: ATTEND Radiology Radiation Oncology
DX: C61 Malignant neoplasm of prostate (principal)
CPT/HCPCS: 78815; A9596

== ENCOUNTER 2023-06-03 16:38 | Inpatient (IN) | payer MEDICARE, OTHER ==
[2023-06-03 17:16] LABS: Basophils % (A) 0 %; Eosinophils # (A) 0.4 k/uL (0-0.7); Eosinophils % (A) 5 %; HGB 13.6 gm/dL (13.0-17.5); Lymphocytes # (A) 2.2 k/uL (1.0-4.8); Lymphocytes % (A) 30 %; MCH 32.6 pg (25.0-35.0); MCHC 33.1 g/dL (31.0-37.0); MCV 98.7 fL (80.0-100.0); Monocytes # (A) 0.7 k/uL (0-1.0); Monocytes % (A) 9 %; Neutrophils # (A) 4.1 k/uL (1.3-7.7); Neutrophils % (A) 54 %; Platelet Count 148 k/uL (150-450); RBC 4.16 m/uL (4.30-5.90); RDW 13.3 % (11.5-15.5); WBC 7.6 k/uL (3.8-10.6)
[2023-06-03 17:24] LABS: INR 0.9 (<1.2); Partial Thromboplastin Time 25.5 sec (22.0-30.0); Prothrombin Time 10.4 sec (10.0-12.5)
--- NOTE | 2023-06-03 17:24 | XR ---
EXAMINATION TYPE: XR chest 2V DATE OF EXAM: 06/03/2023 5:21 PM CLINICAL INDICATION:Male, 67 years old with history of Chest Pain; [facility] COMPARISON: Chest radiographs from 01/31/2023 TECHNIQUE: XR chest 2V Frontal and lateral views of the chest. FINDINGS: Lungs/Pleura: There is flattening of the diaphragm with increased lucency of the lungs. No evidence o f pneumothorax, pleural effusion or focal consolidation. Pulmonary vascularity: Unremarkable. Heart/mediastinum: Cardiomediastinal silhouette is unremarkable. Musculoskeletal: No acute osseous pathology. IMPRESSION: 1. No acute cardiopulmonary disease process. 2. COPD changes.
[2023-06-03 17:27] LABS: ALT 15 U/L (4-49); AST 22 U/L (17-59); African American GFR (CKD) >90 (>60 ml/min/1.73 sqM); Albumin 3.7 g/dL (3.5-5.0); Alkaline Phosphatase 69 U/L (38-126); Anion Gap 7 mmol/L; Blood Urea Nitrogen 17 mg/dL (9-20); Carbon Dioxide 23 mmol/L (22-30); Chloride 112 mmol/L (98-107); Glucose 116 mg/dL (74-99); Magnesium 2.1 mg/dL (1.6-2.3); Non-African American GFR(CKD) >90 (>60 ml/min/1.73 sqM); Potassium 3.8 mmol/L (3.5-5.1); Sodium 142 mmol/L (137-145); Total Bilirubin 0.4 mg/dL (0.2-1.3); Total Protein 6.1 g/dL (6.3-8.2)
[2023-06-03] MEDS ORDERED: NALOXONE 0.4 MG/ML 1 ML VIAL IV PRN (18:27)
[2023-06-03] MEDS ORDERED: MECLIZINE 12.5 MG TAB PO PRN (18:29)
[2023-06-03] MEDS ORDERED: HYDROcodone/APAP 5-325MG 1 EACH TAB PO PRN (18:29)
[2023-06-03] MEDS ORDERED: BUTALB/APAP/CAFF 50-325-40MG TAB PO PRN (18:29)
[2023-06-03] MEDS ORDERED: BACLOFEN 10 MG TAB PO PRN (18:29)
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
[2023-06-03] MEDS: TAMSULOSIN 0.4 MG CAP.ER.24H PO SCH (21:15)
[2023-06-03] MEDS: GABAPENTIN 400 MG CAP PO SCH (21:15)
[2023-06-03] MEDS: ASPIRIN 81 MG PO SCH (21:15)
[2023-06-03] MEDS: levETIRAcetam 500 MG TAB PO SCH (21:15)
[2023-06-03] MEDS: ASCORBIC ACID 500 MG TAB PO SCH (21:16)
[2023-06-03] MEDS: HEPARIN SODIUM,PORCINE 5,000 UNIT/ML 1 ML VIAL SQ SCH (23:30)
[2023-06-04] MEDS: LEVOTHYROXINE 75 MCG TAB PO SCH (07:27)
[2023-06-04] MEDS: LEVOTHYROXINE 100 MCG TAB PO SCH (07:27)
[2023-06-04] MEDS: HEPARIN SODIUM,PORCINE 5,000 UNIT/ML 1 ML VIAL SQ SCH ×3 (07:28→23:22)
[2023-06-04] MEDS ORDERED: IPRATROPIUM 0.5 MG/2.5 ML NEBU INHALATION SCH (08:00)
[2023-06-04] MEDS: levETIRAcetam 500 MG TAB PO SCH ×2 (08:13→20:58)
[2023-06-04] MEDS: ASPIRIN 81 MG PO SCH ×3 (08:13→20:58)
[2023-06-04] MEDS: TOPIRAMATE 100 MG TAB PO SCH ×2 (08:13→20:57)
[2023-06-04] MEDS: ASCORBIC ACID 500 MG TAB PO SCH ×3 (08:13→20:58)
[2023-06-04] MEDS: PANTOPRAZOLE 40 MG TABLET PO SCH (08:13)
[2023-06-04] MEDS: ATORVASTATIN 40 MG TAB PO SCH (08:13)
[2023-06-04] MEDS: atenoloL 25 MG TAB PO SCH (08:13)
[2023-06-04] MEDS: ISOSORBIDE MONONITRATE ER 60 MG TAB.ER.24H PO SCH (08:13)
[2023-06-04] MEDS: lisinopriL 20 MG TAB PO SCH (08:13)
[2023-06-04] MEDS: GABAPENTIN 400 MG CAP PO SCH ×3 (08:35→20:57)
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
[2023-06-04 11:03] LABS: Basophils # (A) 0.06 X 10*3/uL (0.00-0.10); Basophils % (A) 0.9 %; Eosinophils # (A) 0.27 X 10*3/uL (0.04-0.35); Eosinophils % (A) 4.2 %; HCT 43.3 % (39.6-50.0); HGB 13.9 g/dL (13.0-17.0); Lymphocytes # (A) 1.63 X 10*3/uL (0.90-5.00); Lymphocytes % (A) 25.2 %; MCH 31.6 pg (27.0-32.0); MCHC 32.1 g/dL (32.0-37.0); MCV 98.4 FL (80.0-97.0); Mean Platelet Volume 11.7 FL (9.5-12.2); Monocytes # (A) 0.93 X 10*3/uL (0.20-1.00); Monocytes % (A) 14.4 %; NRBC Per 100 WBC 0 X 10*3/uL (0.00-0.01); Neutrophils # (A) 3.57 X 10*3/uL (1.80-7.70); Neutrophils % (A) 55.1 %; Platelet Count 145 X 10*3/uL (140-440); WBC 6.47 X 10*3/uL (4.50-10.00)
[2023-06-04] MEDS ORDERED: IPRATROPIUM-ALBUTEROL 3 ML NEB INHALATION PRN (11:09)
[2023-06-04 11:32] LABS: BUN/Creat Ratio 19.38 Ratio (12.00-20.00); Blood Urea Nitrogen 15.5 mg/dL (9.0-27.0); Calcium 8.8 mg/dL (8.7-10.3); Carbon Dioxide 23.3 mmol/L (21.6-31.8); Chloride 112 mmol/L (96-109); Glucose 102 mg/dL (70-110); Potassium 4.5 mmol/L (3.5-5.5); Sodium 144 mmol/L (135-145)
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
[2023-06-04] MEDS: IPRATROPIUM-ALBUTEROL 3 ML NEB INHALATION SCH ×3 (12:19→18:15)
--- NOTE | 2023-06-04 12:59 | CA ---
Transthoracic Echo Report Name: Adolfo Valderrama Age: 67 Gender: M : 1955 Exam Date: 06/04/2023 10:32 Exam Location: [place] [facility] Ht (in): 71 Wt (lb): 185 Ordering Physician: Virginia Link Attending/Referring Phys: [id number], Nikolay [employer] Bianca Mackenzie RDCS Procedure CPT: Indications: LVF Cardiac Hx: Technical Quality: Technically difficult study Contrast 1: Definity Total Dose (mL): 2 Contrast 2: Total Dose (mL): MEASUREMENTS (Male / Female) Normal Values 2D ECHO LV Diastolic Diameter PLAX 4.2 cm 4.2 - 5.9 / 3.9 - 5.3 cm LV Systolic Diameter PLAX 2.5 cm IVS Diastolic Thickness 1.5 cm 0.6 - 1.0 / 0.6 - 0.9 cm LVPW Diastolic Thickness 1.6 cm 0.6 - 1.0 / 0.6 - 0.9 cm LV Relative Wall Thickness 0.7 RV Internal Dim ED PLAX 3.2 cm LA Volume 45.0 cm??? 18 - 58 / 22 - 52 cm??? LA Volume Index 21.9 cm???/m??? 16 - 28 cm???/m??? M-MODE Aortic Root Diameter MM 3.9 cm DOPPLER AV Peak Velocity 116.0 cm/s AV Peak Gradient 5.4 mmHg AV Mean Velocity 73.7 cm/s AV Mean Gradient 2.5 mmHg AV Velocity Time Integral 24.1 cm LVOT Peak Velocity 96.5 cm/s LVOT Peak Gradient 3.7 mmHg LVOT Velocity Time Integral 23.0 cm MV Area PHT 2.4 cm??? Mitral E Point Velocity 50.2 cm/s Mitral A Point Velocity 63.8 cm/s Mitral E to A Ratio 0.8 MV Deceleration Time 316.1 ms MV E' Velocity 8.2 cm/s Mitral E to MV E' Ratio 6.1 TR Peak Velocity 176.2 cm/s TR Peak Gradient 12.4 mmHg Right Ventricular Systolic Press 17.4 mmHg FINDINGS Left Ventricle Moderately increased left ventricular wall thickness. Normal left ventricular systolic function with no obvious regional wall motion abnormalities. Left ventricular ejection fraction is estimated at 55 %. Left ventricular cavity size normal. Right Ventricle Normal right ventricular size and function. Right ventricular systolic pressure within normal limits. Right Atrium Normal right atrial size. Left Atrium Normal left atrial size. Mitral Valve Structurally normal mitral valve. Mitral valve thickened. Mild mitral annular calcification. Trace to mild mitral regurgitation. Aortic Valve No aortic valve stenosis or regurgitation. Tricuspid Valve Structurally normal tricuspid valve. Mild tricuspid regurgitation. Pulmonic Valve Structurally normal pulmonic valve. Trace pulmonic regurgitation. Pericardium No pericardial effusion. Aorta Normal size aortic root and proximal ascending aorta. CONCLUSIONS Technically difficult study for interpretation Normal LV systolic function Previewed by: Dr. Benito Shay MD (Electronically Signed) Final Date: 04 June 2023 12:58
--- NOTE | 2023-06-04 17:50 | US ---
EXAMINATION TYPE: US abdomen limited DATE OF EXAM: 06/04/2023 COMPARISON: 01/09/23 CLINICAL INDICATION: Male, 67 years old with history of upper left quadrant abdominal pain; RUQ pain TECHNIQUE: Multiple sonographic images of the right upper quadrant are obtained. Limited due to bowel gas FINDINGS: EXAM MEASUREMENTS: Liver Length: 15.4 cm Gallbladder Wall: 0.2 cm CBD: 0.8 cm Right Kidney: 9.8 x 3.7 x 5.3 cm Pancreas: Obscured by bowel gas Liver: Left lobe obscured by bowel gas. No obvious mass seen Gallbladder: Upper limits of normal. No wall thickening Evidence for sonographic Harrison's sign: No CBD: wnl Right Kidney: Cystic area seen in inf pole measuring 2.6 x 2.2 x 2.2cm IMPRESSION: 1. No evidence for acute process. 2. Hepatic steatosis. 3. Right renal cyst.
[2023-06-04] MEDS: TAMSULOSIN 0.4 MG CAP.ER.24H PO SCH (20:57)
[2023-06-05] MEDS: LEVOTHYROXINE 75 MCG TAB PO SCH (05:30)
[2023-06-05] MEDS: LEVOTHYROXINE 100 MCG TAB PO SCH (05:30)
[2023-06-05] MEDS: PANTOPRAZOLE 40 MG TABLET PO SCH (05:31)
[2023-06-05] MEDS: ATORVASTATIN 40 MG TAB PO SCH (08:36)
[2023-06-05] MEDS: TOPIRAMATE 100 MG TAB PO SCH ×2 (08:37→20:01)
[2023-06-05] MEDS: ASPIRIN 81 MG PO SCH ×3 (08:37→21:48)
[2023-06-05] MEDS: levETIRAcetam 500 MG TAB PO SCH ×2 (08:37→20:00)
[2023-06-05] MEDS: ISOSORBIDE MONONITRATE ER 60 MG TAB.ER.24H PO SCH (08:37)
[2023-06-05] MEDS: lisinopriL 20 MG TAB PO SCH (08:37)
[2023-06-05] MEDS: ASCORBIC ACID 500 MG TAB PO SCH ×3 (08:37→21:48)
[2023-06-05] MEDS: atenoloL 25 MG TAB PO SCH (08:37)
[2023-06-05] MEDS: GABAPENTIN 400 MG CAP PO SCH ×3 (08:42→21:48)
[2023-06-05] MEDS: IPRATROPIUM-ALBUTEROL 3 ML NEB INHALATION SCH ×4 (09:00→21:40)
[2023-06-05] MEDS ORDERED: ATORVASTATIN 80 MG TAB PO STA (09:15)
[2023-06-05] MEDS ORDERED: ALPRAZolam 0.25 MG TAB PO PRN (09:15)
[2023-06-05] MEDS ORDERED: NITROGLYCERIN SL TABS 0.4 MG TAB SUBLINGUAL PRN (09:15)
[2023-06-05] MEDS ORDERED: ASPIRIN 325 MG TAB PO STA (09:15)
[2023-06-05] MEDS ORDERED: ALPRAZolam 0.5 MG TAB PO PRN (09:15)
[2023-06-05] MEDS ORDERED: ASPIRIN 81 MG PO STA (09:22)
[2023-06-05] MEDS: HEPARIN SODIUM,PORCINE 5,000 UNIT/ML 1 ML VIAL SQ SCH ×3 (09:25→23:32)
[2023-06-05] MEDS ORDERED: ATORVASTATIN 40 MG TAB PO STA (09:26)
--- NOTE | 2023-06-05 13:22 | P.PN ---
Subjective Progress Note Date: 06/05/23 Patient patient is a 67-year-old male with known history of coronary artery disease and previous stents in the past came in with complaints of left-sided chest pain pressure-like sensation moderate denies any nausea vomiting not a burning sensation pressure-like sensation continues to smoke half a pack of cigarettes. Chest x-ray no acute process as per the patient patient did not have any radiation of chest pain. Patient denies any fever chills. Patient does have prostate cancer apparently need to be started on chemotherapy.. Patient had a cardiac authorization 2019 which showed intermediate disease in RCA and ramus intermedius patient had normal ejection fraction on the echocardiogram done at that time. EKG here did not show any acute ST-T wave changes troponins are negative 06/05. Patient seen and examined. Laying comfortably in the bed. Denies any chest pain episodes. Vital signs stable REVIEW OF SYSTEMS: CONSTITUTIONAL: No fever, no malaise,. CARDIOVASCULAR: No chest pain, no palpitations, no syncope. PULMONARY: No shortness of breath, no cough, GASTROINTESTINAL: No diarrhea, no nausea, no vomiting, no abdominal pain. NEUROLOGICAL: No headaches, no weakness, PHYSICAL EXAMINATION: GENERAL: The patient is alert and oriented x3, not in any acute distress. Well developed, well nourished. HEENT: Pupils are round and equally reacting to light. EOMI. No scleral icterus. No conjunctival pallor. Normocephalic, atraumatic. No pharyngeal erythema. No thyromegaly. CARDIOVASCULAR: S1 and S2 present. No murmurs, rubs, or gallops. PULMONARY: Chest is clear to auscultation, no wheezing or crackles. ABDOMEN: Soft, nontender, nondistended, normoactive bowel sounds. No palpable organomegaly. MUSCULOSKELETAL: No joint swelling or deformity. EXTREMITIES: No cyanosis, clubbing, or pedal edema. NEUROLOGICAL: Gross neurological examination did not reveal any focal deficits. SKIN: No rashes. Assessment and plan Chest pain, acute coronary syndrome ruled out with normal troponins Possible unstable angina History of coronary artery disease Severe epigastric tenderness Peripheral artery disease Hypertension Dyslipidemia Active tobacco use Seizure disorder Prostate cancer Monitor vital signs Monitor CBC Monitor CMP Continue telemetry monitoring Continue aspirin, Lipitor Continue atenolol. Continue pharmacy dose heparin Cardiology planning cardiac cath. Continue rest of home meds Labs and medication were reviewed.. Continue same treatment. Continue with symptomatic treatment. Resume home medication. Monitor labs and vitals. DVT and GI prophylaxis. Further recommendations as per clinical course of the patient Dictation was produced using [employer] dictation software. please excuse any grammatical, word or spelling errors. Objective - Vital Signs Vital signs: Vital Signs Temp 98.2 F 06/05/23 07:00 Pulse 64 06/05/23 09:15 Resp 18 06/05/23 07:00 BP 143/80 06/05/23 07:00 Pulse Ox 95 06/05/23 07:00 FiO2 Intake & Output 06/04/23 06/05/23 06/05/23 18:59 06:59 18:59 Intake Total 118 Output Total 1100 Balance -982 Weight 83.915 kg Intake: Oral 118 Output: Urine 1100 Other: Voiding Method Toilet Toilet # Voids 1 # Bowel Movements 0 - Labs CBC & Chem 7: 06/04/23 06:01 06/04/23 06:01 Labs: Abnormal Lab Results - Last 24 Hours (Table) 06/04/23 Range/Units 06:01 Chloride 112 H (96-109) mmol/L
--- NOTE | 2023-06-05 14:53 | P.PN ---
Subjective Progress Note Date: 06/05/23 Consult reason: chest pain History of present illness: History of present illness: This is a 67-year-old male patient of Dr. Shay with past medical history coronary artery disease, peripheral artery disease, hypertension, dyslipidemia, smoking, history of seizure disorder, prostate cancer. We have been asked to evaluate the patient for chest pain. Patient is seen today in the emergency center waiting for a bed on the observation unit. Patient gives history that he had midsternal chest pressure that was stabbing type and went to his left shoulder. Patient states that he had onset of symptoms while he was obtaining an EEG at the neurologist office. Patient states he continues to smoke cigarettes. He is planning to start chemotherapy for prostate cancer in 4 to 5 weeks. EKG sinus rhythm Chest x-ray: No acute process. COPD WBC 7.6, hemoglobin 13.6, platelet count 148. Sodium 142, potassium 3.8, BUN 17 creatinine 0.82. Troponin negative x 3. Blood sugar 116. Magnesium 2.1. Liver function tests are normal. proBNP 156. Home cardiac medications: Aspirin 81 mg daily, atenolol 25 mg daily, atorvastatin 40 mg daily, Imdur 60 mg daily, lisinopril 40 mg daily, also on levothyroxine 175 mcg daily 06/05 Patient denies having any chest pain at this time. She was scheduled for cardiac catheterization which is going to be delayed until tomorrow. Blood pressure 146/77, pulse ox 92% on room air, heart rate in the 80s. Repeat blood work reveals potassium 4.5, creatinine 0.8. Abdominal ultrasound revealed no evidence of acute process. Hepatic steatosis. Right renal cyst. Echocardiogram reveals technically difficult study for interpretation. Normal LV systolic function. Physical examination: Gen: This is a 67-year-old male. Appears to be in no acute distress VS: reviewed HEENT: Head is atraumatic, normocephalic. Pupils equal, round. Sclerae is anicteric. LUNGS: Clear to auscultation. No wheezes or rhonchi. No intercostal retractions. HEART: Regular rate and rhythm. No murmur. EXTREMITIES: No pedal edema. No calf tenderness. NEUROLOGICAL: Patient is awake, alert and oriented x3. Assessment: Chest pain, acute coronary syndrome ruled out with normal troponins Possible unstable angina History of coronary artery disease Severe epigastric tenderness Peripheral artery disease Hypertension Dyslipidemia Active tobacco use Seizure disorder Prostate cancer Plan: Continue patient's home cardiac medications Plan for cardiac catheterization for Friday Further recommendations to follow based upon clinical course Nurse practitioner note has been reviewed, I agree with documented findings and plan of care. Patient was seen and examined. Objective - Vital Signs Vital signs: Vital Signs Temp 98.2 F 06/05/23 07:00 Pulse 64 06/05/23 09:15 Resp 18 06/05/23 07:00 BP 143/80 06/05/23 07:00 Pulse Ox 95 06/05/23 07:00 FiO2 Intake & Output 06/04/23 06/05/23 06/05/23 18:59 06:59 18:59 Intake Total 118 Output Total 1100 Balance -982 Weight 83.915 kg Intake: Oral 118 Output: Urine 1100 Other: Voiding Method Toilet # Voids 1 # Bowel Movements 0 - Labs CBC & Chem 7: 06/04/23 06:01 06/04/23 06:01 Labs: Abnormal Lab Results - Last 24 Hours (Table) 06/04/23 06/04/23 Range/Units 06:01 06:01 MCV 98.4 H (80.0-97.0) FL Chloride 112 H (96-109) mmol/L
[2023-06-05] MEDS: TAMSULOSIN 0.4 MG CAP.ER.24H PO SCH (20:00)
[2023-06-06] MEDS ORDERED: ATORVASTATIN 80 MG TAB PO ONE (05:00)
[2023-06-06] MEDS ORDERED: EMPTY BAG 1 BAG with SODIUM CHLORIDE 0.9% 1,000 ML IV ONE (05:00)
[2023-06-06] MEDS ORDERED: ASPIRIN 325 MG TAB PO ONE (05:00)
[2023-06-06] MEDS: LEVOTHYROXINE 100 MCG TAB PO SCH (06:16)
[2023-06-06] MEDS: PANTOPRAZOLE 40 MG TABLET PO SCH (06:16)
[2023-06-06] MEDS: LEVOTHYROXINE 75 MCG TAB PO SCH (06:16)
[2023-06-06] MEDS ORDERED: HEPARIN SODIUM,PORCINE (1 ML) 2,500 UNIT in SODIUM CHLORIDE 0.9% 250 ML IRRIGATION PRN (07:00)
[2023-06-06] MEDS ORDERED: HEPARIN SODIUM,PORCINE 10,000 UNIT in SODIUM CHLORIDE 0.9% 1,000 ML IRRIGATION PRN (07:00)
[2023-06-06] MEDS: GABAPENTIN 400 MG CAP PO SCH ×3 (08:24→20:32)
[2023-06-06] MEDS: lisinopriL 20 MG TAB PO SCH (08:24)
[2023-06-06] MEDS: ASCORBIC ACID 500 MG TAB PO SCH ×3 (08:24→20:32)
[2023-06-06] MEDS: levETIRAcetam 500 MG TAB PO SCH ×2 (08:24→20:32)
[2023-06-06] MEDS: TOPIRAMATE 100 MG TAB PO SCH ×2 (08:25→20:32)
[2023-06-06] MEDS: atenoloL 25 MG TAB PO SCH (08:25)
[2023-06-06] MEDS: ISOSORBIDE MONONITRATE ER 60 MG TAB.ER.24H PO SCH (08:25)
[2023-06-06] MEDS: HEPARIN SODIUM,PORCINE 5,000 UNIT/ML 1 ML VIAL SQ SCH ×2 (08:35→16:50)
[2023-06-06] MEDS ORDERED: methylPREDNISolone SOD SUCCI 125 MG/2 ML VIAL IV ONE (08:39)
[2023-06-06] MEDS ORDERED: diphenhydrAMINE 50 MG/ML 1 ML VIAL IVP ONE (08:39)
[2023-06-06] MEDS ORDERED: FAMOTIDINE 20 MG/2 ML VIAL IV STA (08:39)
[2023-06-06] MEDS: IPRATROPIUM-ALBUTEROL 3 ML NEB INHALATION SCH ×4 (08:59→19:43)
--- NOTE | 2023-06-06 11:11 | P.PN ---
Subjective Progress Note Date: 06/06/23 Consult reason: chest pain History of present illness: History of present illness: This is a 67-year-old male patient of Dr. Shay with past medical history coronary artery disease, peripheral artery disease, hypertension, dyslipidemia, smoking, history of seizure disorder, prostate cancer. We have been asked to evaluate the patient for chest pain. Patient is seen today in the emergency center waiting for a bed on the observation unit. Patient gives history that he had midsternal chest pressure that was stabbing type and went to his left shoulder. Patient states that he had onset of symptoms while he was obtaining an EEG at the neurologist office. Patient states he continues to smoke cigarettes. He is planning to start chemotherapy for prostate cancer in 4 to 5 weeks. EKG sinus rhythm Chest x-ray: No acute process. COPD WBC 7.6, hemoglobin 13.6, platelet count 148. Sodium 142, potassium 3.8, BUN 17 creatinine 0.82. Troponin negative x 3. Blood sugar 116. Magnesium 2.1. Liver function tests are normal. proBNP 156. Home cardiac medications: Aspirin 81 mg daily, atenolol 25 mg daily, atorvastatin 40 mg daily, Imdur 60 mg daily, lisinopril 40 mg daily, also on levothyroxine 175 mcg daily 06/05 Patient denies having any chest pain at this time. She was scheduled for cardiac catheterization which is going to be delayed until tomorrow. Blood pressure 146/77, pulse ox 92% on room air, heart rate in the 80s. Repeat blood work reveals potassium 4.5, creatinine 0.8. Abdominal ultrasound revealed no evidence of acute process. Hepatic steatosis. Right renal cyst. Echocardiogram reveals technically difficult study for interpretation. Normal LV systolic function. 06/06 Patient denies having any chest pain, no shortness of breath. Blood pressure 144/78, heart rate in the 50s to 70s. Physical examination: Gen: This is a 67-year-old male. Appears to be in no acute distress VS: reviewed HEENT: Head is atraumatic, normocephalic. Pupils equal, round. Sclerae is anicteric. LUNGS: Clear to auscultation. No wheezes or rhonchi. No intercostal retractions. HEART: Regular rate and rhythm. No murmur. EXTREMITIES: No pedal edema. No calf tenderness. NEUROLOGICAL: Patient is awake, alert and oriented x3. Assessment: Chest pain, acute coronary syndrome ruled out with normal troponins Possible unstable angina History of coronary artery disease Severe epigastric tenderness Peripheral artery disease Hypertension Dyslipidemia Active tobacco use Seizure disorder Prostate cancer Plan: Continue patient's home cardiac medications Plan for cardiac catheterization today Further recommendations to follow based upon clinical course Nurse practitioner note has been reviewed, I agree with documented findings and plan of care. Patient was seen and examined. Objective - Vital Signs Vital signs: Vital Signs Temp 97.5 F L 06/06/23 07:00 Pulse 56 L 06/06/23 07:00 Resp 18 06/06/23 07:00 BP 144/78 06/06/23 07:00 Pulse Ox 94 L 06/06/23 07:00 FiO2 Intake & Output 06/05/23 06/06/23 06/06/23 18:59 06:59 18:59 Intake Total 118 Balance 118 Intake: Oral 118 Other: Voiding Method Toilet # Voids 2 2 - Labs CBC & Chem 7: 06/04/23 06:01 06/04/23 06:01
--- NOTE | 2023-06-06 12:04 | P.PN ---
Subjective Progress Note Date: 06/06/23 Patient patient is a 67-year-old male with known history of coronary artery disease and previous stents in the past came in with complaints of left-sided chest pain pressure-like sensation moderate denies any nausea vomiting not a burning sensation pressure-like sensation continues to smoke half a pack of cigarettes. Chest x-ray no acute process as per the patient patient did not have any radiation of chest pain. Patient denies any fever chills. Patient does have prostate cancer apparently need to be started on chemotherapy.. Patient had a cardiac authorization 2019 which showed intermediate disease in RCA and ramus intermedius patient had normal ejection fraction on the echocardiogram done at that time. EKG here did not show any acute ST-T wave changes troponins are negative 06/05. Patient seen and examined. Laying comfortably in the bed. Denies any chest pain episodes. Vital signs stable 06/06. Patient seen and examined. Currently nothing by mouth, going for cardiac cath today. Denies any lightheadedness or dizziness. Vital signs stable REVIEW OF SYSTEMS: CONSTITUTIONAL: No fever, no malaise,. CARDIOVASCULAR: No chest pain, no palpitations, no syncope. PULMONARY: No shortness of breath, no cough, GASTROINTESTINAL: No diarrhea, no nausea, no vomiting, no abdominal pain. NEUROLOGICAL: No headaches, no weakness, PHYSICAL EXAMINATION: GENERAL: The patient is alert and oriented x3, not in any acute distress. Well developed, well nourished. HEENT: Pupils are round and equally reacting to light. EOMI. No scleral icterus. No conjunctival pallor. Normocephalic, atraumatic. No pharyngeal erythema. No thyromegaly. CARDIOVASCULAR: S1 and S2 present. No murmurs, rubs, or gallops. PULMONARY: Chest is clear to auscultation, no wheezing or crackles. ABDOMEN: Soft, nontender, nondistended, normoactive bowel sounds. No palpable organomegaly. MUSCULOSKELETAL: No joint swelling or deformity. EXTREMITIES: No cyanosis, clubbing, or pedal edema. NEUROLOGICAL: Gross neurological examination did not reveal any focal deficits. SKIN: No rashes. Assessment and plan Chest pain, acute coronary syndrome ruled out with normal troponins Possible unstable angina History of coronary artery disease Severe epigastric tenderness Peripheral artery disease Hypertension Dyslipidemia Active tobacco use Seizure disorder Prostate cancer Monitor vital signs Monitor CBC Monitor CMP Continue telemetry monitoring Continue aspirin, Lipitor Continue atenolol. Continue pharmacy dose heparin Cardiology planning cardiac cath today Continue rest of home meds Labs and medication were reviewed.. Continue same treatment. Continue with symptomatic treatment. Resume home medication. Monitor labs and vitals. DVT and GI prophylaxis. Further recommendations as per clinical course of the patient Dictation was produced using [employer] dictation software. please excuse any grammatical, word or spelling errors. Objective - Vital Signs Vital signs: Vital Signs Temp 97.5 F L 06/06/23 07:00 Pulse 68 06/06/23 09:10 Resp 18 06/06/23 07:00 BP 144/78 06/06/23 07:00 Pulse Ox 94 L 06/06/23 07:00 FiO2 Intake & Output 06/05/23 06/06/23 06/06/23 18:59 06:59 18:59 Intake Total 118 Balance 118 Intake: Oral 118 Other: Voiding Method Toilet # Voids 2 2 - Labs CBC & Chem 7: 06/04/23 06:01 06/04/23 06:01
[2023-06-06] MEDS ORDERED: IV FLUID CONTINUATION 1,000 ML IV ONE (12:56)
[2023-06-06] MEDS ORDERED: LIDOCAINE 1% INJ 10MG/ML (20 ML MDV) SQ ONE (13:02)
[2023-06-06] MEDS ORDERED: MIDAZOLAM 2 MG/2 ML VIAL IVP ONE (13:02)
[2023-06-06] MEDS ORDERED: HEPARIN SODIUM 1,000 UN/ML (10ML VL) IVP ONE (13:17)
[2023-06-06] MEDS ORDERED: IOPAMIDOL-370 100ML BTL INJ ONE (13:21)
[2023-06-06] MEDS ORDERED: RX INFO: IV CONTRAST WAS GIVEN 1 EACH MISC MISCELLANE PRN (13:24)
--- NOTE | 2023-06-06 13:28 | P.PCN ---
Date of Procedure: 06/06/23 Operative Findings: CARDIAC CATHETERIZATION PERFORMING PHYSICIAN: Benito Shay MD, RPVI PROCEDURE PERFORMED: 1. Selective right and left coronary angiogram 2. Left heart catheterization 3. Ultrasound-guided access of the right common femoral artery and selective right common femoral artery angiogram 4. iFR of the left circumflex INDICATION: Chest discomfort concerning for angina COMPLICATION: None APPROACH: Right common femoral artery LEVEL OF SEDATION: Moderate with sedation in length of 15 minutes PROCEDURE DESCRIPTION: After obtaining an informed consent, the patient was brought to cardiac laborer [facility]. Local anesthesia was performed using lidocaine subcutaneously. The right common femoral artery was cannulated using Seldinger technique, the guidewire passed easily, following that we advanced a 6 [place] sheath dilator assembly, the wire and dilator were removed and sheath was flushed. Selective right and left coronary angiogram using a 6[place] JR4 and JL catheters. Following that we did left heart catheterization using 6[place] pigtail catheter. After that we decided to do Doppler wire measurement of the left circumflex coronary artery after zeroing the Doppler wire and equalizing between the Doppler wire and guiding catheter we did engage the left main and then the left circumflex was wired. We did iFR and that came in to be nonischemic at 0.92 The procedure was completed there was no complication. SELECTIVE CORONARY ANGIOGRAM: The right coronary artery: Large-caliber vessel codominant vessel appears to have mild to moderate diffuse disease appears to be unchanged compared to before Left main: Is angiographically normal The left circumflex: Large-caliber vessel. The proximal left circumflex gives rises into an OM1 which works as a ramus intermedius and has intermediate lesion in the proximal portion appears to be in the range of 40-50%. We did Doppler wire measurement and that came in to be nonischemic as described above The left anterior descending artery: Large-caliber vessel and appears to be normal and gives rise into a large diagonal branch which seems to be normal HEMODYNAMICS: The LVEDP was about 10 mmHg was no significant gradient across aortic valve CONCLUSION: 1. Intermediate disease involving the left circumflex appeared to be in the range of 50% and documented to be nonflow limiting by Doppler wire POSTPROCEDURE MANAGEMENT: Medical treatment
[2023-06-06] MEDS ORDERED: SODIUM CHLORIDE 0.9% 1,000 ML IV SCH (13:30)
[2023-06-06] MEDS ORDERED: SODIUM CHLORIDE 0.9% 1,000 ML IV ONE (13:40)
[2023-06-06] MEDS ORDERED: hydrALAZINE HCL 20 MG/ML 1 ML VIAL IVP STA ×2 (15:42→16:49)
[2023-06-06] MEDS ORDERED: hydrALAZINE HCL 20 MG/ML 1 ML VIAL ONE (15:42)
[2023-06-06] MEDS ORDERED: hydrALAZINE HCL 20 MG/ML 1 ML VIAL IV STA (16:35)
[2023-06-06] MEDS: TAMSULOSIN 0.4 MG CAP.ER.24H PO SCH (20:32)
[2023-06-07] MEDS: HEPARIN SODIUM,PORCINE 5,000 UNIT/ML 1 ML VIAL SQ SCH ×2 (00:42→08:26)
[2023-06-07] MEDS: LEVOTHYROXINE 100 MCG TAB PO SCH (06:17)
[2023-06-07] MEDS: LEVOTHYROXINE 75 MCG TAB PO SCH (06:17)
[2023-06-07] MEDS: PANTOPRAZOLE 40 MG TABLET PO SCH (06:17)
[2023-06-07 07:42] VITALS: RESP 20; TEMP 97
[2023-06-07] MEDS: atenoloL 25 MG TAB PO SCH (08:25)
[2023-06-07] MEDS: lisinopriL 20 MG TAB PO SCH (08:25)
[2023-06-07] MEDS: ASCORBIC ACID 500 MG TAB PO SCH (08:25)
[2023-06-07] MEDS: TOPIRAMATE 100 MG TAB PO SCH (08:26)
[2023-06-07] MEDS: levETIRAcetam 500 MG TAB PO SCH (08:26)
[2023-06-07] MEDS: ISOSORBIDE MONONITRATE ER 60 MG TAB.ER.24H PO SCH (08:26)
[2023-06-07] MEDS: GABAPENTIN 400 MG CAP PO SCH (08:34)
[2023-06-07] MEDS: IPRATROPIUM-ALBUTEROL 3 ML NEB INHALATION SCH (08:57)
[2023-06-07] MEDS ORDERED: ATORVASTATIN 40 MG TAB PO SCH (09:00)
[2023-06-07] MEDS ORDERED: ASPIRIN 81 MG PO SCH (09:00)
[2023-06-07] MEDS ORDERED: amLODIPine 10 MG TAB PO SCH (09:30)
[2023-06-07 09:49] LABS: BUN/Creat Ratio 23.78 Ratio (12.00-20.00); Blood Urea Nitrogen 21.4 mg/dL (9.0-27.0); Calcium 9.1 mg/dL (8.7-10.3); Carbon Dioxide 19.5 mmol/L (21.6-31.8); Chloride 111 mmol/L (96-109); Glucose 100 mg/dL (70-110); Potassium 4.7 mmol/L (3.5-5.5); Sodium 144 mmol/L (135-145)
[2023-06-07 10:20] VITALS: PULSE 59
--- NOTE | 2023-06-07 10:36 | P.PN ---
Subjective Progress Note Date: 06/07/23 Consult reason: chest pain History of present illness: History of present illness: This is a 67-year-old male patient of Dr. Shay with past medical history coronary artery disease, peripheral artery disease, hypertension, dyslipidemia, smoking, history of seizure disorder, prostate cancer. We have been asked to evaluate the patient for chest pain. Patient is seen today in the emergency center waiting for a bed on the observation unit. Patient gives history that he had midsternal chest pressure that was stabbing type and went to his left shoulder. Patient states that he had onset of symptoms while he was obtaining an EEG at the neurologist office. Patient states he continues to smoke cigarettes. He is planning to start chemotherapy for prostate cancer in 4 to 5 weeks. EKG sinus rhythm Chest x-ray: No acute process. COPD WBC 7.6, hemoglobin 13.6, platelet count 148. Sodium 142, potassium 3.8, BUN 17 creatinine 0.82. Troponin negative x 3. Blood sugar 116. Magnesium 2.1. Liver function tests are normal. proBNP 156. Home cardiac medications: Aspirin 81 mg daily, atenolol 25 mg daily, atorvastatin 40 mg daily, Imdur 60 mg daily, lisinopril 40 mg daily, also on levothyroxine 175 mcg daily 06/05 Patient denies having any chest pain at this time. She was scheduled for cardiac catheterization which is going to be delayed until tomorrow. Blood pressure 146/77, pulse ox 92% on room air, heart rate in the 80s. Repeat blood work reveals potassium 4.5, creatinine 0.8. Abdominal ultrasound revealed no evidence of acute process. Hepatic steatosis. Right renal cyst. Echocardiogram reveals technically difficult study for interpretation. Normal LV systolic function. 06/06 Patient denies having any chest pain, no shortness of breath. Blood pressure 144/78, heart rate in the 50s to 70s. 06/07 Patient underwent cardiac catheterization yesterday with Dr. Shay which revealed intermediate disease involving the left circumflex at 50%. No complaints of chest pain, no shortness of breath, no lightheadedness or dizziness. Blood pressure readings are elevated this morning. Patient did receive hydralazine IV yesterday afternoon. Repeat blood work reveals sodium 144, potassium 4.7, BUN 21 and creatinine 0.9. Right groin soft no hematoma. Physical examination: Gen: This is a 67-year-old male. Appears to be in no acute distress VS: reviewed HEENT: Head is atraumatic, normocephalic. Pupils equal, round. Sclerae is anicteric. LUNGS: Clear to auscultation. No wheezes or rhonchi. No intercostal retractions. HEART: Regular rate and rhythm. No murmur. EXTREMITIES: No pedal edema. No calf tenderness. NEUROLOGICAL: Patient is awake, alert and oriented x3. Assessment: Chest pain, acute coronary syndrome ruled out with normal troponins and cardiac catheterization finding intermediate disease only Possible unstable angina History of coronary artery disease Severe epigastric tenderness Peripheral artery disease Hypertension Dyslipidemia Active tobacco use Seizure disorder Prostate cancer Plan: Continue patient's home cardiac medications Add amlodipine 10 mg daily for blood pressure Patient is cleared from cardiology for discharge and may follow-up with Dr. Shay in 2 weeks. Nurse practitioner note has been reviewed, I agree with documented findings and plan of care. Patient was seen and examined. Objective - Vital Signs Vital signs: Vital Signs Temp 97 F L 06/07/23 07:00 Pulse 59 L 06/07/23 07:00 Resp 20 06/07/23 07:00 BP 197/73 06/07/23 07:00 Pulse Ox 94 L 06/07/23 07:00 FiO2 Intake & Output 06/06/23 06/07/23 06/07/23 18:59 06:59 18:59 Intake Total 800 Output Total 1575 400 Balance -775 -400 Intake: IV 800 Output: Urine 1575 400 Other: Voiding Method Toilet # Voids 3 - Labs CBC & Chem 7: 06/04/23 06:01 06/07/23 05:22
[2023-06-07 11:10] VITALS: BP 101/65
--- NOTE | 2023-06-07 12:10 | P.DS ---
Providers Date of admission: 06/03/23 18:29 Expected date of discharge: 06/07/23 Attending physician: Asim Burch Consults: 06/03/23 18:27 Consult Physician Routine Consulting Provider: [facility] Consult Reason/Comments: chest pain Do you want consulting provider notified?: Yes Primary care physician: Kolby Padgett Hospital Course: Discharge diagnoses; Chest pain, acute coronary syndrome ruled out with normal troponins Possible unstable angina History of coronary artery disease Severe epigastric tenderness Peripheral artery disease Hypertension Dyslipidemia Active tobacco use Seizure disorder Prostate cancer Hospital course; Patient patient is a 67-year-old male with known history of coronary artery disease and previous stents in the past came in with complaints of left-sided chest pain pressure-like sensation moderate denies any nausea vomiting not a burning sensation pressure-like sensation continues to smoke half a pack of cigarettes. Chest x-ray no acute process as per the patient patient did not have any radiation of chest pain. Patient denies any fever chills. Patient does have prostate cancer apparently need to be started on chemotherapy.. Patient had a cardiac authorization 2020 which showed intermediate disease in RCA and ramus intermedius patient had normal ejection fraction on the echocardiogram done at that time. EKG here did not show any acute ST-T wave changes troponins are negative 06/05. Patient seen and examined. Laying comfortably in the bed. Denies any chest pain episodes. Vital signs stable 06/06. Patient seen and examined. Currently nothing by mouth, going for cardiac cath today. Denies any lightheadedness or dizziness. Vital signs stable 06/07. Patient seen and examined. Cardiac cath done showed intermediate disease involving the left circumflex appeared to be in the range of 50% and documented to be nonflow limiting by Doppler wire. Cardiology recommend medical management PHYSICAL EXAMINATION: GENERAL: The patient is alert and oriented x3, not in any acute distress. Well developed, well nourished. HEENT: Pupils are round and equally reacting to light. EOMI. No scleral icterus. No conjunctival pallor. Normocephalic, atraumatic. No pharyngeal erythema. No thyromegaly. CARDIOVASCULAR: S1 and S2 present. No murmurs, rubs, or gallops. PULMONARY: Chest is clear to auscultation, no wheezing or crackles. ABDOMEN: Soft, nontender, nondistended, normoactive bowel sounds. No palpable organomegaly. MUSCULOSKELETAL: No joint swelling or deformity. EXTREMITIES: No cyanosis, clubbing, or pedal edema. NEUROLOGICAL: Gross neurological examination did not reveal any focal deficits. SKIN: No rashes. Dictation was produced using [employer] dictation software. please excuse any grammatical, word or spelling errors. Patient Condition at Discharge: Stable Plan - Discharge Summary Discharge Rx Participant: No New Discharge Prescriptions: New Nitroglycerin Sl Tabs [Nitrostat] 0.4 mg SUBLINGUAL Q5M PRN #30 tab PRN Reason: Chest Pain amLODIPine [Norvasc] 10 mg PO DAILY #30 tab Continue Topiramate [Trokendi Xr] 200 mg PO DAILY rOPINIRole HCL [Requip] 1 mg PO HS lisinopriL 40 mg PO DAILY Isosorbide Mononitrate ER [Imdur] 60 mg PO DAILY Levothyroxine Sodium [Synthroid] 175 mcg PO DAILY atenoloL 25 mg PO DAILY Baclofen 10 mg PO TID PRN PRN Reason: Muscle Spasm Meclizine [Antivert] 12.5 mg PO BID PRN PRN Reason: Vertigo HYDROcodone/APAP 5-325MG [Burton 5-325] 1 tab PO BID PRN PRN Reason: Pain Butalb/APAP/Caff 50-325-40Mg [Fioricet 50-325-40] 1 tab PO Q6HR PRN PRN Reason: Migraine Headache Vit C/E/Zn/Coppr/Lutein/Zeaxan [Preservision Areds 2 Softgel] 1 cap PO TID Ascorbic Acid [Vitamin C] 500 mg PO TID Cholecalciferol [Vitamin D3 (25 Mcg = 1000 Iu)] 50 mcg PO DAILY Aspirin EC [Ecotrin Low Dose] 81 mg PO TID levETIRAcetam [Keppra] 500 mg PO BID Tiotropium 2.5 Mcg/Puff [Spiriva Respimat 2.5 Mcg] 2 puff INHALATION RT-DAILY Tamsulosin [Flomax] 0.4 mg PO HS Gabapentin 800 mg PO TID Atorvastatin [Lipitor] 40 mg PO DAILY Folic Acid 1 mg PO DAILY Discharge Medication List Topiramate [Trokendi Xr] 200 mg PO DAILY 08/04/17 [History] lisinopriL 40 mg PO DAILY 08/04/17 [History] rOPINIRole HCL [Requip] 1 mg PO HS 08/04/17 [History] Isosorbide Mononitrate ER [Imdur] 60 mg PO DAILY 11/17/19 [History] Levothyroxine Sodium [Synthroid] 175 mcg PO DAILY 11/17/19 [History] Baclofen 10 mg PO TID PRN 03/13/20 [History] atenoloL 25 mg PO DAILY 03/13/20 [History] Ascorbic Acid [Vitamin C] 500 mg PO TID 01/31/23 [History] Aspirin EC [Ecotrin Low Dose] 81 mg PO TID 01/31/23 [History] Atorvastatin [Lipitor] 40 mg PO DAILY 01/31/23 [History] Butalb/APAP/Caff 50-325-40Mg [Fioricet 50-325-40] 1 tab PO Q6HR PRN 01/31/23 [History] Cholecalciferol [Vitamin D3 (25 Mcg = 1000 Iu)] 50 mcg PO DAILY 01/31/23 [History] Folic Acid 1 mg PO DAILY 01/31/23 [History] Gabapentin 800 mg PO TID 01/31/23 [History] HYDROcodone/APAP 5-325MG [Burton 5-325] 1 tab PO BID PRN 01/31/23 [History] Meclizine [Antivert] 12.5 mg PO BID PRN 01/31/23 [History] Tamsulosin [Flomax] 0.4 mg PO HS 01/31/23 [History] Tiotropium 2.5 Mcg/Puff [Spiriva Respimat 2.5 Mcg] 2 puff INHALATION RT-DAILY 01/31/23 [History] Vit C/E/Zn/Coppr/Lutein/Zeaxan [Preservision Areds 2 Softgel] 1 cap PO TID 01/31/23 [History] levETIRAcetam [Keppra] 500 mg PO BID 06/03/23 [History] Nitroglycerin Sl Tabs [Nitrostat] 0.4 mg SUBLINGUAL Q5M PRN #30 tab 06/07/23 [Rx] amLODIPine [Norvasc] 10 mg PO DAILY #30 tab 06/07/23 [Rx] Follow up Appointment(s)/Referral(s): Benito Shay MD [STAFF PHYSICIAN] - 2 Weeks Kolby Padgett [Primary Care Provider] - 1 Week Patient Instructions/Handouts: How to Stop Smoking (DC) Discharge Disposition: HOME SELF-CARE
[2023-06-08] MEDS ORDERED: ASPIRIN 81 MG PO SCH (09:00)
== END 2023-06-07 11:07 | disposition home or self-care (01) | DRG 287 ==
LOC: EC 16:38 → 6NMEDSUR 18:29 → OBSVTOIN 18:29 → 6NMEDSUR 21:24
PROVIDERS: ADMIT Hospitalist; ATTEND Hospitalist
PROC: B41F1ZZ Fluoroscopy of Right Lower Extremity Arteries using Low Osmolar Contrast (ICD-10-PCS; 2023-06-06)
PROC: 4A023N7 Measurement of Cardiac Sampling and Pressure, Left Heart, Percutaneous Approach (ICD-10-PCS; principal; 2023-06-06 10:30)
PROC: B2111ZZ Fluoroscopy of Multiple Coronary Arteries using Low Osmolar Contrast (ICD-10-PCS; 2023-06-06 10:30)
PROC: 4A033BC Measurement of Arterial Pressure, Coronary, Percutaneous Approach (ICD-10-PCS; 2023-06-06 10:30)
DX: I25.110 Atherosclerotic heart disease of native coronary artery with unstable angina pectoris (principal); E03.9 Hypothyroidism, unspecified; E11.51 Type 2 diabetes mellitus with diabetic peripheral angiopathy without gangrene; E78.5 Hyperlipidemia, unspecified; F17.210 Nicotine dependence, cigarettes, uncomplicated; G40.909 Epilepsy, unspecified, not intractable, without status epilepticus; I10 Essential (primary) hypertension; K21.9 Gastro-esophageal reflux disease without esophagitis; I08.1 Rheumatic disorders of both mitral and tricuspid valves; K76.0 Fatty (change of) liver, not elsewhere classified; N28.1 Cyst of kidney, acquired; Z79.82 Long term (current) use of aspirin; Z79.890 Hormone replacement therapy; Z79.899 Other long term (current) drug therapy; Z85.46 Personal history of malignant neoplasm of prostate; Z91.013 Allergy to seafood; Z98.42 Cataract extraction status, left eye; Z98.41 Cataract extraction status, right eye
CPT/HCPCS: 36415; 71046; 76705; 80048; 80053; 83690; 83735; 83880; 84484; 85025; 85610; 85730; 93005; 93306; 94640; 96372; 99285

== ENCOUNTER → 2023-07-29 | Outpatient (CLI) | payer MEDICARE, OTHER ==
--- NOTE | 2023-07-29 17:16 | US ---
EXAMINATION TYPE: US kidneys/renal and bladder DATE OF EXAM: 07/29/2023 COMPARISON: 02/14/2023 CLINICAL INDICATION: Male, 67 years old with history of R10.9 ABD PAIN; pain EXAM MEASUREMENTS: Right Kidney: 10.7 x 5.0 x 4.2 cm Left Kidney: 11.4 x 5.7 x 4.4 cm Right Kidney: Anechoic area lower pole 2.1 x 2.1 x 2.0 cm Left Kidney: Anechoic area upper pole 2.4 x 2.4 x 2.8 cm. Bladder: anechoic Bilateral Jets seen: yes There is no evidence for hydronephrosis at this point in time. No nephrolithiasis is seen. No kinga s are identified. The urinary bladder is anechoic. Bilateral ureteral jets are seen. IMPRESSION: 1. No evidence for obstructive uropathy. 2. Simple appearing renal cysts bilaterally.
== END | disposition home or self-care (01) ==
LOC: RADUSWWP 14:44
PROVIDERS: ATTEND Urology
DX: N28.1 Cyst of kidney, acquired (principal)
CPT/HCPCS: 76770

== ENCOUNTER 2023-09-25 09:37 | Emergency (ER) | payer MEDICARE, OTHER ==
[2023-09-25 10:30] LABS: Basophils % (A) 1 %; Eosinophils # (A) 0.5 k/uL (0-0.7); Eosinophils % (A) 8 %; HCT 40.5 % (39.0-53.0); HGB 12.9 gm/dL (13.0-17.5); Lymphocytes # (A) 0.8 k/uL (1.0-4.8); Lymphocytes % (A) 12 %; MCH 32.7 pg (25.0-35.0); MCHC 31.9 g/dL (31.0-37.0); MCV 102.6 fL (80.0-100.0); Macrocytosis Slight; Mean Platelet Volume 8.7; Monocytes # (A) 0.5 k/uL (0-1.0); Monocytes % (A) 8 %; Neutrophils # (A) 4.5 k/uL (1.3-7.7); Neutrophils % (A) 70 %; Platelet Count 164 k/uL (150-450); RBC 3.94 m/uL (4.30-5.90); RDW 14.3 % (11.5-15.5); WBC 6.4 k/uL (3.8-10.6)
--- NOTE | 2023-09-25 10:37 | CT ---
EXAMINATION TYPE: CT brain wo con DATE OF EXAM: 09/25/2023 COMPARISON: None HISTORY: ams CT DLP: [address] of the brain was performed. The ventricles, basal cisterns and sulci overlying the cerebral convexities demonstrate mild enlargem ent. There is no evidence for intracranial hemorrhage or sulcal effacement. There is decreased attenuation about the periventricular white matter and deep white matter of both c erebral hemispheres, compatible with chronic small vessel ischemia. Differential diagnosis does inclu de demyelination. No mass effects are seen.No midline shift. Osseous calvarium is intact. If symptoms persist consider MRI. IMPRESSION: 1. Age related atrophic and chronic small vessel ischemic change without acute intracranial process s een at this time.
[2023-09-25 10:44] LABS: Partial Thromboplastin Time 25.3 sec (22.0-30.0); Prothrombin Time 10.7 sec (10.0-12.5)
[2023-09-25 10:45] LABS: ALT 19 U/L (4-49); AST 19 U/L (17-59); African American GFR (CKD) >90 (>60 ml/min/1.73 sqM); Albumin 3.7 g/dL (3.5-5.0); Alkaline Phosphatase 80 U/L (38-126); Anion Gap 8 mmol/L; Blood Urea Nitrogen 25 mg/dL (9-20); Carbon Dioxide 19 mmol/L (22-30); Chloride 111 mmol/L (98-107); Glucose 104 mg/dL (74-99); Magnesium 1.9 mg/dL (1.6-2.3); Non-African American GFR(CKD) 88 (>60 ml/min/1.73 sqM); Potassium 4.1 mmol/L (3.5-5.1); Sodium 138 mmol/L (137-145); Total Bilirubin 0.3 mg/dL (0.2-1.3)
--- NOTE | 2023-09-25 10:51 | XR ---
EXAMINATION TYPE: XR chest 2V DATE OF EXAM: 09/25/2023 COMPARISON: 06/03/2023 HISTORY: Shortness of breath TECHNIQUE: Frontal and lateral views of the chest are obtained. FINDINGS: Scattered senescent parenchymal changes noted. Hyperinflation compatible with COPD. No evidence for infiltrate. No evidence for atelectasis. Heart size is stable. Mediastinal structures are stable and grossly unremarkable. No evidence for hilar prominence. Degenerative changes dorsal spine. IMPRESSION: 1. No evidence for acute pulmonary disease.
[2023-09-25 10:54] LABS: NT-Pro-B-Type Natriuretic Pept 363 pg/mL
[2023-09-25] MEDS: SODIUM CHLORIDE 0.9% 500 ML 500 ML IV STA (11:05)
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
[2023-09-25 12:51] LABS: Appearance,Urine Clear (Clear); Bilirubin,Urine Negative (Negative); Blood,Urine Negative (Negative); Color,Urine Colorless; Glucose,Urine (UA) Negative (Negative); Ketones,Urine Negative (Negative); Leukocyte Esterase,Urine Negative (Negative); Nitrite,Urine Negative (Negative); Protein,Urine Negative (Negative); Specific Gravity,Urine 1.012 (1.001-1.035); Urobilinogen,Urine <2.0 mg/dL (<2.0)
--- NOTE | 2023-09-25 13:15 | CT ---
EXAMINATION TYPE: CT abdomen pelvis wo con DATE OF EXAM: 09/25/2023 COMPARISON: None HISTORY: abd pain CT DLP: 643.6 mGycm Examination of the solid and hollow viscera is limited given the lack of contrast. FINDINGS: LUNG BASES: No evidence for nodule. No evidence for infiltrate. LIVER/GB: The gallbladder is unremarkable. No space-occupying hepatic lesion. PANCREAS: No pancreatic mass identified. No inflammatory process seen. SPLEEN: No evidence for splenomegaly. No intrasplenic lesions seen. ADRENALS: Right adrenal adenoma measuring 1.9 cm. Left adrenal gland is unremarkable. No evidence for thickening. KIDNEYS: Bilateral simple renal cysts noted. No nephrolithiasis. No hydronephrosis. Urinary bladder w all thickening may reflect underlying cystitis. BOWEL: Nonvisualization of the appendix. No evidence of bowel obstruction. No inflammatory process. S igmoid diverticulosis without diverticulitis. Lymph nodes: No evidence for adenopathy greater than 1 cm. Abdominal aorta: Atheromatous changes seen. No evidence for aneurysm. Genital organs: No significant abnormality. Other: No significant abnormality. IMPRESSION: 1. No acute process seen to account for the patient's symptoms. Incidental findings as noted above.
[2023-09-25] MEDS: SODIUM CHLORIDE 0.9% 500 ML 500 ML IV ONE (13:21)
[2023-09-25 15:08] VITALS: BP 141/74; PULSE 63; RESP 20; TEMP 97.3
== END 2023-09-25 15:04 | disposition home or self-care (01) ==
LOC: EC 09:37
DX: R55 Syncope and collapse (principal); E86.0 Dehydration; F17.200 Nicotine dependence, unspecified, uncomplicated; I25.2 Old myocardial infarction; Z91.041 Radiographic dye allergy status; Z91.013 Allergy to seafood; Z88.8 Allergy status to other drugs, medicaments and biological substances
CPT/HCPCS: 36415; 70450; 71046; 74176; 80053; 81003; 83605; 83735; 83880; 84484; 85025; 85610; 85730; 93005; 96360; 96361; 99285

== ENCOUNTER → 2024-04-07 | Outpatient (CLI) | payer MEDICARE, OTHER ==
--- NOTE | 2024-04-07 11:25 | XR ---
EXAMINATION TYPE: XR abdomen 1V DATE OF EXAM: 04/07/2024 COMPARISON: CT abdomen and pelvis 09/25/2023 HISTORY: Abdominal pain for one year TECHNIQUE: Single supine KUB image of the abdomen is obtained FINDINGS: Small bowel demonstrates no evidence for dilatation or air fluid levels. Gas and fecal material is seen in non-distended colon. No convincing evidence for pneumoperitoneum. Multiple pelvic phleboliths. The lung bases are clear. The osseous structures are intact. Degenerative changes of the lumbar spine. Heterotopic ossification adjacent to the left greater trochanter. IMPRESSION: Overall nonobstructive bowel gas pattern. [facility], , 04/07/2024 11:23 AM
[2024-04-07 15:55] LABS: Basophils # (A) 0.05 X 10*3/uL (0.00-0.10); Basophils % (A) 0.8 %; Eosinophils # (A) 0.05 X 10*3/uL (0.04-0.35); Eosinophils % (A) 0.8 %; HCT 43.7 % (39.6-50.0); HGB 14.1 g/dL (13.0-17.0); Lymphocytes # (A) 0.89 X 10*3/uL (0.90-5.00); Lymphocytes % (A) 13.6 %; MCH 32.5 pg (27.0-32.0); MCHC 32.3 g/dL (32.0-37.0); MCV 100.7 FL (80.0-97.0); Mean Platelet Volume 10.8 FL (9.5-12.2); Monocytes # (A) 0.72 X 10*3/uL (0.20-1.00); NRBC Per 100 WBC 0 X 10*3/uL (0.00-0.01); Neutrophils % (A) 73.5 %; Platelet Count 165 X 10*3/uL (140-440); RBC 4.34 X 10*6/uL (4.40-5.60); RDW 15.2 % (11.5-14.5); WBC 6.53 X 10*3/uL (4.50-10.00)
[2024-04-07 16:06] LABS: ALT 9 U/L (10-49); AST 17 U/L (14-35); Albumin 4.3 g/dL (3.8-4.9); Albumin/Globulin Ratio 1.95 Ratio (1.60-3.17); Alkaline Phosphatase 98 U/L (41-126); BUN/Creat Ratio 15.62 Ratio (12.00-20.00); Blood Urea Nitrogen 12.5 mg/dL (9.0-27.0); Calcium 9.4 mg/dL (8.7-10.3); Carbon Dioxide 21.1 mmol/L (21.6-31.8); Chloride 112 mmol/L (96-109); Globulin 2.2 g/dL (1.6-3.3); Glucose 121 mg/dL (70-110); Potassium 4.1 mmol/L (3.5-5.5); Sodium 142 mmol/L (135-145); Total Bilirubin 0.3 mg/dL (0.3-1.2); Total Protein 6.5 g/dL (6.2-8.2)
[2024-04-07 19:04] LABS: Appearance,Urine Clear (Clear); Bilirubin,Urine Negative (Negative); Blood,Urine Negative (Negative); Color,Urine Yellow (Yellow); Ketones,Urine Negative (Negative); Nitrite,Urine Negative (Negative); PH, Urine 5.5; Specific Gravity,Urine 1.018 (1.001-1.030)
[2024-04-07 19:16] LABS: Bacteria,Urine None Seen (None Seen)
== END | disposition home or self-care (01) ==
LOC: LABWHC1 10:24
PROVIDERS: ATTEND Family Medicine
DX: R10.84 Generalized abdominal pain (principal)
CPT/HCPCS: 36415; 74018; 80053; 81001; 85025

== ENCOUNTER → 2024-04-30 | Outpatient (CLI) | payer MEDICARE, OTHER ==
[2024-04-30 16:36] LABS: Prostate Specific Antigen <0.01 ng/mL (0.000-4.500); Testosterone <10.00 ng/dL (86.98-780.10)
== END | disposition home or self-care (01) ==
LOC: LABWHC1 10:18
PROVIDERS: ATTEND Radiology Radiation Oncology
DX: C61 Malignant neoplasm of prostate (principal); F17.210 Nicotine dependence, cigarettes, uncomplicated
CPT/HCPCS: 36415; 84153; 84403

== ENCOUNTER → 2024-11-03 | Outpatient (CLI) | payer MEDICARE, OTHER | LOC: LABWHC1 11:57 | PROVIDERS: ATTEND Radiology Radiation Oncology | DX: C61 Malignant neoplasm of prostate (principal); F17.210 Nicotine dependence, cigarettes, uncomplicated ==

== ENCOUNTER → 2024-11-04 | Outpatient (CLI) | payer MEDICARE, OTHER ==
[2024-11-04 22:08] LABS: Prostate Specific Antigen <0.01 ng/mL (0.000-6.500)
== END | disposition home or self-care (01) ==
LOC: LABWHC1 12:38
PROVIDERS: ATTEND Radiology Radiation Oncology
DX: C61 Malignant neoplasm of prostate (principal); F17.210 Nicotine dependence, cigarettes, uncomplicated
CPT/HCPCS: 36415; 84153; 84403